=== PATIENT | female | born 1965 | race African-American/Black ===

== ENCOUNTER 2016-07-10 00:23 | Inpatient (IN) | payer OTHER ==
--- NOTE | 2016-07-10 00:32 | HP ---
COWS - Scale Resting Pulse: 0= [place] 80 or Below Sweatin= Chills/Flushing Restless Observation: 1= Difficult to Sit Still Pupil Size: 2= Moderately Dilated Bone or Joint Aches: 4=Acute Joint/Muscle Pain Runny Nose/ Eye Tearin= Runny Nose/Eyes GI Upset > 30mins: 1= Stomach Cramp Tremor Observation: 2= Slight Tremor Visible Yawning Observation: 0= None Anxiety or Irritability: 2=Irritable/Anxious Goose Flesh Skin: 0=Smooth Skin COWS Score: 15 Admission ROS S - HPI Chief Complaint: WITHDRAWAL SX'S Allergies/Adverse Reactions: Allergies Allergy/AdvReac Type Severity Reaction Status Date / Time No Known Allergies Allergy Verified 11/12/14 20:21 History of Present Illness: 51 Y.O. FEMALE WITH OPIOID DEPENDENCE FOR THE PAST 1 YEAR ADMITTED FOR DETOX TXMENT. THIS IS CLIENTS FIRST TIME IN DETOX. SHE IS CURRENTLY IN [facility] OUT[facility]IENT [facility]. DENIES ANY SIGNIFICANT CLEAN TIME. Exam Limitations: No Limitations - Ebola screening Have you traveled outside of the country in the last 21 days: No Have you had contact with anyone from an Ebola affected area: No Have you been sick,other than usual withdrawal symptoms: No Do you have a fever: No - Review of Systems Constitutional: Chills, Loss of Appetite, Malaise, Night Sweats, Changes in sleep EENT: reports: Nose Congestion, Other (RINORRHEA) Respiratory: reports: No Symptoms reported Cardiac: reports: No Symptoms Reported GI: reports: Poor Appetite, Abdominal cramping : reports: No Symptoms Reported Musculoskeletal: reports: Back Pain Integumentary: reports: No Symptoms Reported Neuro: reports: No Symptoms reported Endocrine: reports: No Symptoms Reported Hematology: reports: No Symptoms Reported Psychiatric: reports: No Sypmtoms Reported Other Systems: Reviewed and Negative Patient History - Patient Medical History Hx Anemia: Yes Hx Asthma: No Hx Chronic Obstructive Pulmonary Disease (COPD): No Hx Cancer: No Hx Cardiac Disorders: No Hx Congestive Heart Failure: No Hx Hypertension: No Hx Hypercholesterolemia: No Hx Pacemaker: No HX Cerebrovascular Accident: No Hx Seizures: No Hx Dementia: No Hx Diabetes: No Hx Gastrointestinal Disorders: No Hx Liver Disease: No Hx Genitourinary Disorders: No Hx Sexually Transmitted Disorders: No Hx Renal Disease (ESRD): No Hx Thyroid Disease: No Hx Human Immunodeficiency Virus (HIV): No Hx Hepatitis C: No Hx Depression: No Hx Suicide Attempt: No Hx Bipolar Disorder: No Hx Schizophrenia: No Other Medical History: DENIES - Patient Surgical History Past Surgical History: Yes Hx Neurologic Surgery: No Hx Cataract Extraction: No Hx Cardiac Surgery: No Hx Lung Surgery: No Hx Breast Surgery: No Hx Breast Biopsy: No Hx Abdominal Surgery: No Hx Appendectomy: No Hx Cholecystectomy: No Hx Genitourinary Surgery: No Hx Section: No Hx Orthopedic Surgery: Yes (L ANKLE FX REPAIR WITH ORIF) Hx Hysterectomy: No Anesthesia Reaction: No - PPD History Previous Implant?: Yes Documented Results: Negative w/o proof Implanted On Prior R Admission?: No PPD to be Administered?: Yes - Reproductive History Patient is a Female of Child Bearing Age (11 -55 yrs old): Yes Last Menstrual Period: 12/14/15 Patient : No ([facility]) - Smoking Cessation Smoking history: Current every day smoker Have you smoked in the past 12 months: Yes Aproximately how many cigarettes per day: 7 Cigars Per Day: 0 Hx Chewing Tobacco Use: No Initiated information on smoking cessation: Yes 'Breaking Loose' booklet given: 07/10/16 - Substance & Tx. History Hx Alcohol Use: No Hx Substance Use: Yes Substance Use Type: Heroin Hx Substance Use Treatment: No - Substances Abused HEROIN Route: Inhalation Frequency: Daily Amount used: 1 BAG Age of first use: 51 Date of Last Use: 07/08/16 Family Disease History - Family Disease History Family History: Denies Admission Physical Exam S - Physical General Appearance: Yes: No Apparent Distress, Appropriately Dressed HEENTM: Yes: EOMI, Hearing grossly Normal, Normocephalic, Normal Voice, DEBORAH, Pharynx Normal Respiratory: Yes: Chest Non-Tender, Lungs Clear, Normal Breath Sounds, No Respiratory Distress, No Accessory Muscle Use Neck: Yes: No masses,lesions,Nodules, Supple, Trachea in good position Breast: Yes: Breast Exam Deferred Cardiology: Yes: Regular Rhythm, Regular Rate, S1, S2 Abdominal: Yes: Normal Bowel Sounds, Non Tender, Soft Genitourinary: Yes: Within Normal Limits Back: Yes: Normal Inspection Musculoskeletal: Yes: full range of Motion, Gait Steady Extremities: Yes: Normal Range of Motion, Non-Tender, Tremors Neurological: Yes: video conference specialist II-XII NML intact, Fully Oriented, Alert, Motor Strength 5/5 Integumentary: Yes: Normal Color, Warm, Moist Lymphatic: Yes: Within Normal Limits - Diagnostic (1) Opioid dependence with withdrawal Current Visit: Yes Status: Acute (2) Nicotine dependence Current Visit: Yes Status: Chronic Qualifiers: Nicotine product type: cigarettes Substance use status: uncomplicated Qualified Code(s): F17.210 - Nicotine dependence, cigarettes, uncomplicated Cleared for Admission S - Detox or Rehab [facility] Level of Care: Medically Managed Detox Regimen/Protocol: Methadone S Breath Alcohol Content Breath Alcohol Content: 0 Vital Signs - Vital Signs Vital Signs Refused: No Temperature: 97.6 F Temperature Source: Oral Pulse Rate: 75 Respiratory Rate: 18 Blood Pressure: 126/78 BP Location: Left Arm Blood Pressure Position: Sitting - Height Height: 5 ft 7 in - Weight Weight: 65.317 kg Weight Measurement Method: Standing Scale Body Mass Index (BMI): 22.5 Urine Pregancy Test - Test Device Lot Number: [id number] Expiration Date: 01/11/18 - Control Horizontal Line in Upper Control Window?: Yes - Result Urine Test Results: Negative- NO Line Present Urine Drug Screen - Test Device Lot Number: [id number] - Control Is Test Valid: Yes - Results Drug Screen Negative: No Urine Drug Screen Results: VICENTE-Cocaine, OPI-Opiates
[2016-07-10 00:37] VITALS: BMI 22.5
[2016-07-10] MEDS ORDERED: MAGNESIUM HYDROX 2400MG/30ML ORAL SUSPENSION 30 ML CUP PO PRN (00:37)
[2016-07-10] MEDS ORDERED: METHADONE HCL 10 MG TABLET (FOR DETOX USE ONLY) PO ONE ×3 (00:37→23:00)
[2016-07-10] MEDS ORDERED: MAGNESIUM CITRATE 300 ML BOTTLE PO PRN (00:37)
[2016-07-10] MEDS ORDERED: MAG HYDROX/AL HYDROX/SIMETH 30 ML UNIT-DOSE CUP PO PRN (00:37)
[2016-07-10] MEDS ORDERED: IBUPROFEN 400 MG TABLET (FP) PO PRN (00:37)
[2016-07-10] MEDS ORDERED: guaiFENesin/D-METHORPHAN HB 10 ML UNIT-DOSE CUPS PO PRN (00:37)
[2016-07-10] MEDS ORDERED: LOPERAMIDE HCL 2 MG CAPSULE PO PRN (00:37)
[2016-07-10] MEDS ORDERED: MENTHOL/PHENOL 1 EACH UD MM PRN (00:37)
[2016-07-10] MEDS ORDERED: P-EPHED 60MG/TRIPROLIDI 2.5MG TABLET PO PRN (00:37)
[2016-07-10] MEDS: diazePAM 5 MG TABLET PO PRN ×3 (01:24→15:47)
[2016-07-10 10:16] LABS: MCH 29.2 pg (25.7-33.7); MCHC 33.1 g/dl (32.0-36.0); MEAN CELL VOLUME 88.2 fl (80-96); MEAN PLT VOLUME 8.5 fl (7.5-11.1); PLATELET COUNT 230 K/MM3 (134-434); RDW 17.3 % (11.6-15.6); WHITE BLOOD COUNT 7.1 K/mm3 (4.0-10.0)
[2016-07-10] MEDS: PRENATAL VITAMINS W/ FOLIC ACID TABLET (FP) PO SCH (10:39)
[2016-07-10] MEDS: NICOTINE 14 MG/24 HOURS TOPICAL PATCH TD SCH (10:40)
[2016-07-10] MEDS: NICOTINE POLACRILEX 2 MG GUM BC PRN (10:42)
--- NOTE | 2016-07-10 10:42 | PN ---
BHS COWS - Scale Resting Pulse: 0= [place] 80 or Below Sweatin=Flushed/Facial Moisture Restless Observation: 1= Difficult to Sit Still Pupil Size: 0= Normal to Room Light Bone or Joint Aches: 2= Severe Diffuse Aches Runny Nose/ Eye Tearin= Runny Nose/Eyes GI Upset > 30mins: 0= None Tremor Observation of Outstretched Hands: 2= Slight Tremor Visible Yawning Observation: 2= >3x During Session Anxiety or Irritability: 2=Irritable/Anxious Goose Flesh Skin: 3=Piloerection COWS Score: 16 BHS Progress Note (SOAP) Subjective: chills shakes sweats agitation irritable interrupted sleep body aches Objective: 07/10/16 10:41 Vital Signs Temperature 99.5 F 07/10/16 10:00 Pulse Rate 77 07/10/16 10:00 Respiratory Rate 18 07/10/16 10:00 Blood Pressure 121/96 07/10/16 10:00 O2 Sat by Pulse Oximetry (%) Laboratory Tests 07/10/16 07/10/16 07:40 07:40 WBC 7.1 RBC 4.58 Hgb 13.4 D Hct 40.4 D MCV 88.2 MCHC 33.1 RDW 17.3 H D Plt Count 230 MPV 8.5 D Sodium 142 Potassium 3.7 Chloride 105 labs pending awake/alert ambulating no acute distress Assessment: 07/10/16 10:42 withdrawal sx Plan: continue detox increase fluids tylenol/motrin prn labs pending
[2016-07-10 10:43] LABS: ALBUMIN 3.3 g/dl (3.4-5.0); ALK PHOS 114 U/L (45-117); ANION GAP 8 (8-16); BILIRUBIN,TOTAL 0.5 mg/dL (0.2-1.0); CALCIUM 9.1 mg/dL (8.5-10.1); CO2 29 mmol/L (21-32); CREATININE 0.7 mg/dL (0.55-1.02); GLUCOSE,RANDOM 73 mg/dL (74-106); SGOT/AST 17 U/L (15-37); SGPT/ALT 24 U/L (12-78); TOT PROT 6.7 g/dl (6.4-8.2)
[2016-07-10 16:11] LABS: URINE APPEARANCE CLOUDY; URINE BILIRUBIN NEGATIVE (NEGATIVE); URINE BLOOD NEGATIVE (NEGATIVE); URINE COLOR DKYELLOW; URINE GLUCOSE (UA) NEGATIVE (NEGATIVE); URINE KETONE NEGATIVE (NEGATIVE); URINE NITRITE NEGATIVE (NEGATIVE); URINE PROTEIN NEGATIVE (NEGATIVE); URINE UROBILINOGEN NEGATIVE E.U./dl (0.2-1.0)
[2016-07-10 16:18] LABS: URINE LEUK ESTERASE 3+ (NEGATIVE)
[2016-07-10 16:57] LABS: URINE MUCUS RARE; URINE RBC 14 /hpf (0-3); URINE WBC 14 /hpf (3-5)
[2016-07-10] MEDS: THIAMINE HCL 100 MG TABLET (FP) PO SCH (23:12)
[2016-07-10] MEDS: METHADONE HCL 10 MG TABLET (FOR DETOX USE ONLY) PO ONE (23:12)
[2016-07-10] MEDS: diphenhydrAMINE HCL 50 MG CAPSULE PO PRN (23:13)
[2016-07-11] MEDS ORDERED: METHADONE HCL 10 MG TABLET (FOR DETOX USE ONLY) PO ONE (10:00)
[2016-07-11] MEDS: PRENATAL VITAMINS W/ FOLIC ACID TABLET (FP) PO SCH (10:25)
[2016-07-11] MEDS: NICOTINE 14 MG/24 HOURS TOPICAL PATCH TD SCH (10:26)
[2016-07-11] MEDS: diazePAM 5 MG TABLET PO PRN ×3 (10:28→22:50)
--- NOTE | 2016-07-11 11:20 | PN ---
S COWS - Scale Resting Pulse: 0= [place] 80 or Below Sweatin= Chills/Flushing Restless Observation: 1= Difficult to Sit Still Pupil Size: 1= Pupils >than Normal Bone or Joint Aches: 2= Severe Diffuse Aches Runny Nose/ Eye Tearin= Nasal Congestion GI Upset > 30mins: 2= Nausea/Diarrhea Tremor Observation of Outstretched Hands: 1= Tremor [place], Not Seen Yawning Observation: 0= None Anxiety or Irritability: 2=Irritable/Anxious Goose Flesh Skin: 0=Smooth Skin COWS Score: 11 S Progress Note (SOAP) Subjective: interrupted sleep,sweats, nausea, bone pains Objective: 07/11/16 11:17 Vital Signs Temperature 97.5 F L 07/11/16 09:57 Pulse Rate 73 07/11/16 09:57 Respiratory Rate 20 07/11/16 09:57 Blood Pressure 114/88 07/11/16 09:57 O2 Sat by Pulse Oximetry (%) Laboratory Tests 07/10/16 07/10/16 07/10/16 07:40 07:40 07:40 WBC 7.1 RBC 4.58 Hgb 13.4 D Hct 40.4 D MCV 88.2 MCHC 33.1 RDW 17.3 H D Plt Count 230 MPV 8.5 D Sodium 142 Potassium 3.7 Chloride 105 Carbon Dioxide 29 Anion Gap 8 BUN 16 D Creatinine 0.7 Creat Clearance w eGFR > 60 Random Glucose 73 L Calcium 9.1 Total Bilirubin 0.5 D AST 17 D ALT 24 Alkaline Phosphatase 114 D Total Protein 6.7 Albumin 3.3 L Urine Color Urine Appearance Urine pH Ur Specific [place] Urine Protein Urine Glucose (UA) Urine Ketones Urine Blood Urine Nitrite Urine Bilirubin Urine Urobilinogen Ur Leukocyte Esterase Urine RBC Urine WBC Ur Epithelial Cells Urine Mucus RPR Titer Nonreactive 07/10/16 11:30 WBC RBC Hgb Hct MCV MCHC RDW Plt Count MPV Sodium Potassium Chloride Carbon Dioxide Anion Gap BUN Creatinine Creat Clearance w eGFR Random Glucose Calcium Total Bilirubin AST ALT Alkaline Phosphatase Total Protein Albumin Urine Color Dkyellow Urine Appearance Cloudy Urine pH 5.0 Ur Specific [place] 1.028 Urine Protein Negative Urine Glucose (UA) Negative Urine Ketones Negative Urine Blood Negative Urine Nitrite Negative Urine Bilirubin Negative Urine Urobilinogen Negative Ur Leukocyte Esterase 3+ H Urine RBC 14 Urine WBC 14 Ur Epithelial Cells Moderate Urine Mucus Rare RPR Titer pt aox3 in nad ambulating Assessment: 07/11/16 11:18 withdrawl sx's Plan: cont. detox increase fluids ensure bid motrin prn repeat u/a
[2016-07-11] MEDS: NICOTINE POLACRILEX 2 MG GUM BC PRN (17:14)
[2016-07-11] MEDS: THIAMINE HCL 100 MG TABLET (FP) PO SCH (22:50)
[2016-07-11] MEDS: diphenhydrAMINE HCL 50 MG CAPSULE PO PRN (22:51)
[2016-07-12] MEDS ORDERED: METHADONE HCL 5 MG TABLET (FOR DETOX USE ONLY) PO ONE (10:00)
[2016-07-12] MEDS: PRENATAL VITAMINS W/ FOLIC ACID TABLET (FP) PO SCH (10:15)
[2016-07-12] MEDS: diazePAM 5 MG TABLET PO PRN ×3 (10:16→22:33)
[2016-07-12] MEDS: NICOTINE 14 MG/24 HOURS TOPICAL PATCH TD SCH (10:19)
[2016-07-12] MEDS: NICOTINE POLACRILEX 2 MG GUM BC PRN ×3 (10:19→22:35)
--- NOTE | 2016-07-12 11:16 | PN ---
BHS Progress Note (SOAP) Subjective: interrupted sleep sweats shakes Objective: 07/12/16 11:16 Vital Signs Temperature 98.4 F 07/12/16 10:50 Pulse Rate 100 H 07/12/16 10:50 Respiratory Rate 20 07/12/16 10:50 Blood Pressure 114/66 07/12/16 10:50 O2 Sat by Pulse Oximetry (%) Laboratory Tests 07/10/16 07/10/16 07/10/16 07:40 07:40 07:40 WBC 7.1 RBC 4.58 Hgb 13.4 D Hct 40.4 D MCV 88.2 MCHC 33.1 RDW 17.3 H D Plt Count 230 MPV 8.5 D Sodium 142 Potassium 3.7 Chloride 105 Carbon Dioxide 29 Anion Gap 8 BUN 16 D Creatinine 0.7 Creat Clearance w eGFR > 60 Random Glucose 73 L Calcium 9.1 Total Bilirubin 0.5 D AST 17 D ALT 24 Alkaline Phosphatase 114 D Total Protein 6.7 Albumin 3.3 L Urine Color Urine Appearance Urine pH Ur Specific [place] Urine Protein Urine Glucose (UA) Urine Ketones Urine Blood Urine Nitrite Urine Bilirubin Urine Urobilinogen Ur Leukocyte Esterase Urine RBC Urine WBC Ur Epithelial Cells Urine Mucus RPR Titer Nonreactive 07/10/16 11:30 WBC RBC Hgb Hct MCV MCHC RDW Plt Count MPV Sodium Potassium Chloride Carbon Dioxide Anion Gap BUN Creatinine Creat Clearance w eGFR Random Glucose Calcium Total Bilirubin AST ALT Alkaline Phosphatase Total Protein Albumin Urine Color Dkyellow Urine Appearance Cloudy Urine pH 5.0 Ur Specific [place] 1.028 Urine Protein Negative Urine Glucose (UA) Negative Urine Ketones Negative Urine Blood Negative Urine Nitrite Negative Urine Bilirubin Negative Urine Urobilinogen Negative Ur Leukocyte Esterase 3+ H Urine RBC 14 Urine WBC 14 Ur Epithelial Cells Moderate Urine Mucus Rare RPR Titer repeat u/a pending awake/alert ambulating no acute distress Assessment: 07/12/16 11:17 withdrawal sx Plan: continue detox increase fluids
--- NOTE | 2016-07-12 11:54 | CONSULT ---
[facility] Psychiatric Consult - Data Date of interview: 07/12/16 Admission source: [facility] Identifying data: This is 51 years old female with no psychiatric hospitalization history intoxicated with Heroin Substance Abuse History: - Smoking Cessation. Smoking history: Current every day smoker. Have you smoked in the past 12 months: Yes. Aproximately how many cigarettes per day: 7. Cigars Per Day: 0. Hx Chewing Tobacco Use: No. Initiated information on smoking cessation: Yes. 'Breaking Loose' booklet given : 07/10/16. - Substance & Tx. History. Hx Alcohol Use: No. Hx Substance Use: Yes. Substance Use Type: Heroin. Hx Substance Use Treatment: No. - Substances Abused. HEROIN. Route: Inhalation. Frequency: Daily. Amount used: 1 BAG. Age of first use: 51. Date of Last Use: 07/08/16 Medical History: Denies significant medical issues, as per computer PID history Psychiatric History: Denies, reports insomnia Physical/Sexual Abuse/Trauma History: Denies Additional Comment: Seroquel 100mg po qhs Mental Status Exam - Mental Status Exam Alert and Oriented to: Person Cognitive Function: Fair Patient Appearance: Unkempt Mood: Anxious Affect: Mood Congruent Patient Behavior: Cooperative Speech Pattern: Appropriate Voice Loudness: Mildly Soft/Quiet Thought Process: Goal Oriented Thought Disorder: Being Controlled Hallucinations: Denies Suicidal Ideation: Denies Homicidal Ideation: Denies Insight/Judgement: Fair Sleep: Difficulty falling asleep Appetite: Fair Muscle strength/Tone: Normal Gait/Station: Normal Additional Comments: Seroquel 100mg po qhs Psychiatric Findings - Problem List ([place] 1, 2,3) (1) Opioid dependence with withdrawal Current Visit: Yes Status: Acute (2) Nicotine dependence Current Visit: Yes Status: Chronic Qualifiers: Nicotine product type: cigarettes Substance use status: uncomplicated Qualified Code(s): F17.210 - Nicotine dependence, cigarettes, uncomplicated (3) Opioid dependence Current Visit: No Status: Acute (4) Opioid-induced sleep disorder, insomnia type, with onset during discontinuation/withdrawal Current Visit: Yes Status: Acute (5) Drug-induced mood disorder Current Visit: Yes Status: Acute - Initial Treatment Plan Initial Treatment Plan: Seroquel 100mg po qhs
[2016-07-12] MEDS: diphenhydrAMINE HCL 50 MG CAPSULE PO PRN (22:32)
[2016-07-12] MEDS: THIAMINE HCL 100 MG TABLET (FP) PO SCH (22:32)
[2016-07-12] MEDS: QUEtiapine FUMARATE 100 MG TABLET (FP) PO SCH (22:33)
[2016-07-13] MEDS ORDERED: METHADONE HCL 5 MG TABLET (FOR DETOX USE ONLY) PO ONE (10:00)
[2016-07-13] MEDS: PRENATAL VITAMINS W/ FOLIC ACID TABLET (FP) PO SCH (10:25)
[2016-07-13] MEDS: NICOTINE 14 MG/24 HOURS TOPICAL PATCH TD SCH (10:25)
[2016-07-13] MEDS: NICOTINE POLACRILEX 2 MG GUM BC PRN (10:29)
--- NOTE | 2016-07-13 11:29 | PN ---
BHS Progress Note (SOAP) Subjective: interrupt sleep, sweats , shakes Objective: 07/13/16 11:27 Vital Signs Temperature 97.7 F 07/13/16 10:12 Pulse Rate 101 H 07/13/16 10:12 Respiratory Rate 20 07/13/16 10:12 Blood Pressure 110/75 07/13/16 10:12 O2 Sat by Pulse Oximetry (%) Laboratory Tests 07/10/16 07/10/16 07/10/16 07:40 07:40 07:40 WBC 7.1 RBC 4.58 Hgb 13.4 D Hct 40.4 D MCV 88.2 MCHC 33.1 RDW 17.3 H D Plt Count 230 MPV 8.5 D Sodium 142 Potassium 3.7 Chloride 105 Carbon Dioxide 29 Anion Gap 8 BUN 16 D Creatinine 0.7 Creat Clearance w eGFR > 60 Random Glucose 73 L Calcium 9.1 Total Bilirubin 0.5 D AST 17 D ALT 24 Alkaline Phosphatase 114 D Total Protein 6.7 Albumin 3.3 L Urine Color Urine Appearance Urine pH Ur Specific [place] Urine Protein Urine Glucose (UA) Urine Ketones Urine Blood Urine Nitrite Urine Bilirubin Urine Urobilinogen Ur Leukocyte Esterase Urine RBC Urine WBC Ur Epithelial Cells Urine Mucus RPR Titer Nonreactive 07/10/16 11:30 WBC RBC Hgb Hct MCV MCHC RDW Plt Count MPV Sodium Potassium Chloride Carbon Dioxide Anion Gap BUN Creatinine Creat Clearance w eGFR Random Glucose Calcium Total Bilirubin AST ALT Alkaline Phosphatase Total Protein Albumin Urine Color Dkyellow Urine Appearance Cloudy Urine pH 5.0 Ur Specific [place] 1.028 Urine Protein Negative Urine Glucose (UA) Negative Urine Ketones Negative Urine Blood Negative Urine Nitrite Negative Urine Bilirubin Negative Urine Urobilinogen Negative Ur Leukocyte Esterase 3+ H Urine RBC 14 Urine WBC 14 Ur Epithelial Cells Moderate Urine Mucus Rare RPR Titer pt aox3 in nad ambulating rt ear helix -papule tender hyper pigmented Assessment: 07/13/16 11:28 withdrawl sx's rt ear papule ?infected papule Plan: cont, detox increase fluids augmentin 875mg bid
[2016-07-13] MEDS: AMOX TR/POT CLAV 875MG/125MG TABLETS (FP) PO SCH ×2 (11:55→16:40)
[2016-07-13] MEDS ORDERED: AMOX TR/POT CLAV 875MG/125MG TABLETS (FP) PO SCH (17:30)
--- NOTE | 2016-07-13 18:28 | PN ---
[facility] Progress Note Note: Psychiatry Attending's note: Complaint:insomnia. Met with patient at bedside. Confirmed sleep latency and frequent awakenings. Hospital course is otherwise uneventful.Detox well tolerated. Progress notes are read and appreciated,including Dr Terrell's evaluation. Mr Simmons was already seen by Dr Terrell on 07/12/16.Stable mental status. Intervention : zolpidem 5 mg po hs prn.Ordered. Patient made aware of risk of parasomnias. Educated about the virtues of principles of sleep hygiene. Patient agrees with this plan of care.Will follow response.
[2016-07-13] MEDS: ZOLPIDEM TARTRATE 5 MG TABLET PO PRN (22:47)
[2016-07-13] MEDS: THIAMINE HCL 100 MG TABLET (FP) PO SCH (22:47)
[2016-07-13] MEDS: QUEtiapine FUMARATE 100 MG TABLET (FP) PO SCH (22:47)
[2016-07-14] MEDS: ACETAMINOPHEN 325 MG TABLET (FP) PO PRN ×2 (05:45→11:38)
[2016-07-14] MEDS: AMOX TR/POT CLAV 875MG/125MG TABLETS (FP) PO SCH ×2 (07:35→17:29)
[2016-07-14] MEDS: NICOTINE 14 MG/24 HOURS TOPICAL PATCH TD SCH (11:38)
[2016-07-14] MEDS: METHADONE HCL 10 MG TABLET (FOR DETOX USE ONLY) PO ONE (11:38)
[2016-07-14] MEDS: PRENATAL VITAMINS W/ FOLIC ACID TABLET (FP) PO SCH (11:38)
[2016-07-14] MEDS: CYCLOBENZAPRINE HCL 10 MG TABLET (FP) PO PRN ×2 (13:45→22:37)
--- NOTE | 2016-07-14 13:58 | PN ---
S Progress Note (SOAP) Subjective: alert,irritable,anxious,interrupted sleep Objective: 07/14/16 13:57 Vital Signs Temperature 97.5 F L 07/14/16 10:00 Pulse Rate 97 H 07/14/16 10:00 Respiratory Rate 18 07/14/16 10:00 Blood Pressure 117/69 07/14/16 10:00 O2 Sat by Pulse Oximetry (%) Assessment: 07/14/16 13:58 withdrawal symptom Plan: continue detox,discharge in am
[2016-07-14] MEDS: hydrOXYzine PAMOATE 50 MG CAPSULE (FP) PO PRN ×2 (15:34→22:38)
[2016-07-14 21:59] VITALS: TEMP 97.9
[2016-07-14] MEDS: QUEtiapine FUMARATE 100 MG TABLET (FP) PO SCH (22:37)
[2016-07-14] MEDS: ZOLPIDEM TARTRATE 5 MG TABLET PO PRN (22:37)
[2016-07-14] MEDS: THIAMINE HCL 100 MG TABLET (FP) PO SCH (22:38)
[2016-07-15] MEDS ORDERED: METHADONE HCL 5 MG TABLET (FOR DETOX USE ONLY) PO ONE (06:00)
[2016-07-15] MEDS: CYCLOBENZAPRINE HCL 10 MG TABLET (FP) PO PRN (06:10)
[2016-07-15 06:39] VITALS: BP 97/60; PULSE 80
[2016-07-15] MEDS: AMOX TR/POT CLAV 875MG/125MG TABLETS (FP) PO SCH (07:13)
--- NOTE | 2016-07-15 11:26 | DS ---
[facility] Detox Discharge Summary Admission Date: 07/10/16 Discharge Date: 07/15/16 - History Present History: Opioid Dependence Pertinent Past History: PID - Physical Exam Results Vital Signs: Vital Signs Temperature 97.9 F 07/15/16 06:00 Pulse Rate 80 07/15/16 06:00 Respiratory Rate 18 07/15/16 06:00 Blood Pressure 97/60 07/15/16 06:00 O2 Sat by Pulse Oximetry (%) Pertinent Admission Physical Exam Findings: WITHDRAWAL SX. Laboratory Last Values WBC 7.1 K/mm3 (4.0-10.0) 07/10/16 07:40 RBC 4.58 M/mm3 (3.60-5.2) 07/10/16 07:40 Hgb 13.4 GM/dL (10.7-15.3) D 07/10/16 07:40 Hct 40.4 % (32.4-45.2) D 07/10/16 07:40 MCV 88.2 fl (80-96) 07/10/16 07:40 MCHC 33.1 g/dl (32.0-36.0) 07/10/16 07:40 RDW 17.3 % (11.6-15.6) H D 07/10/16 07:40 Plt Count 230 K/MM3 (134-434) 07/10/16 07:40 MPV 8.5 fl (7.5-11.1) D 07/10/16 07:40 Sodium 142 mmol/L (136-145) 07/10/16 07:40 Potassium 3.7 mmol/L (3.5-5.1) 07/10/16 07:40 Chloride 105 mmol/L (98-107) 07/10/16 07:40 Carbon Dioxide 29 mmol/L (21-32) 07/10/16 07:40 Anion Gap 8 (8-16) 07/10/16 07:40 BUN 16 mg/dL (7-18) D 07/10/16 07:40 Creatinine 0.7 mg/dL (0.55-1.02) 07/10/16 07:40 Creat Clearance w eGFR > 60 (>60) 07/10/16 07:40 Random Glucose 73 mg/dL (74-106) L 07/10/16 07:40 Calcium 9.1 mg/dL (8.5-10.1) 07/10/16 07:40 Total Bilirubin 0.5 mg/dL (0.2-1.0) D 07/10/16 07:40 AST 17 U/L (15-37) D 07/10/16 07:40 ALT 24 U/L (12-78) 07/10/16 07:40 Alkaline Phosphatase 114 U/L (45-117) D 07/10/16 07:40 Total Protein 6.7 g/dl (6.4-8.2) 07/10/16 07:40 Albumin 3.3 g/dl (3.4-5.0) L 07/10/16 07:40 Urine Color Dkyellow 07/10/16 11:30 Urine Appearance Cloudy 07/10/16 11:30 Urine pH 5.0 (5.0-8.0) 07/10/16 11:30 Ur Specific [place] 1.028 (1.001-1.035) 07/10/16 11:30 Urine Protein Negative (NEGATIVE) 07/10/16 11:30 Urine Glucose (UA) Negative (NEGATIVE) 07/10/16 11:30 Urine Ketones Negative (NEGATIVE) 07/10/16 11:30 Urine Blood Negative (NEGATIVE) 07/10/16 11:30 Urine Nitrite Negative (NEGATIVE) 07/10/16 11:30 Urine Bilirubin Negative (NEGATIVE) 07/10/16 11:30 Urine Urobilinogen Negative E.U./dl (0.2-1.0) 07/10/16 11:30 Ur Leukocyte Esterase 3+ (NEGATIVE) H 07/10/16 11:30 Urine RBC 14 /hpf (0-3) 07/10/16 11:30 Urine WBC 14 /hpf (3-5) 07/10/16 11:30 Ur Epithelial Cells Moderate /hpf (FEW) 07/10/16 11:30 Urine Mucus Rare 07/10/16 11:30 RPR Titer Nonreactive (NONREACTIVE) 07/10/16 07:40 LABS NOTED - Treatment Hospital Course: Detox Protocol Followed, Detoxed Safely, Responded well, Discharged Condition Good, Rehab Referral Accepted - Medication Discharge Medications: Ambulatory Orders Acetaminophen [Tylenol .Regular Strength -] 650 mg PO Q4H PRN #30 tablet Cefuroxime Axetil [Ceftin] 500 mg PO BID #20 tablet 11/16/14 Doxycycline Monohydrate [Adoxa Jerardo] 100 mg PO BID #20 tablet 11/16/14 Ibuprofen [Motrin -] 600 mg PO Q6H PRN #30 tablet 11/16/14 Buprenorphine/Naloxone [Suboxone 8Mg/2Mg Sl Film -] 1 each SL ONCE #1 packet MDD 8 mg 06/13/16 Buprenorphine/Naloxone [Suboxone 8Mg/2Mg Sl Film -] 1 each SL ONCE #1 packet MDD 8 mg 06/13/16 Quetiapine Fumarate [Seroquel] 100 mg PO HS #30 tablet 07/12/16 - Diagnosis (1) Drug-induced mood disorder Status: Acute (2) Nicotine dependence Status: Chronic Qualifiers: Nicotine product type: cigarettes Substance use status: uncomplicated Qualified Code(s): F17.210 - Nicotine dependence, cigarettes, uncomplicated (3) Opioid dependence with withdrawal Status: Acute (4) Opioid-induced sleep disorder, insomnia type, with onset during discontinuation/withdrawal Status: Acute (5) PID (acute pelvic inflammatory disease) Status: Acute - AMA Did Patient Leave Against Medical Advice: No
== END 2016-07-15 09:59 | disposition home or self-care (01) | DRG 773 ==
LOC: YASAS 00:23 → Y6N 00:28
PROVIDERS: ADMIT Internal Medicine Addiction Medicine; ATTEND Internal Medicine Addiction Medicine
PROC: HZ2ZZZZ Detoxification Services for Substance Abuse Treatment (ICD-10-PCS; principal; 2016-07-10)
DX: F11.23 Opioid dependence with withdrawal (principal); F11.282 Opioid dependence with opioid-induced sleep disorder; F17.210 Nicotine dependence, cigarettes, uncomplicated; F19.24 Other psychoactive substance dependence with psychoactive substance-induced mood disorder; N73.0 Acute parametritis and pelvic cellulitis; H61.891 Other specified disorders of right external ear; Z86.2 Personal history of diseases of the blood and blood-forming organs and certain disorders involving the immune mechanism
CPT/HCPCS: 36415; 80053; 81003; 81015; 85027; 86593; 93005; 93010

== ENCOUNTER 2017-04-22 10:56 | Inpatient (IN) | payer OTHER ==
[2017-04-22 13:20] VITALS: BMI 22.5
--- NOTE | 2017-04-22 15:08 | HP ---
COWS - Scale Resting Pulse: 0= [place] 80 or Below Sweatin=Flushed/Facial Moisture Restless Observation: 1= Difficult to Sit Still Pupil Size: 0= Normal to Room Light Bone or Joint Aches: 2= Severe Diffuse Aches Runny Nose/ Eye Tearin= Runny Nose/Eyes GI Upset > 30mins: 2= Nausea/Diarrhea Tremor Observation: 2= Slight Tremor Visible Yawning Observation: 2= >3x During Session Anxiety or Irritability: 2=Irritable/Anxious Goose Flesh Skin: 3=Piloerection COWS Score: 18 Admission ROS S - HPI Chief Complaint: I am here for detox and get my life back. Allergies/Adverse Reactions: Allergies Allergy/AdvReac Type Severity Reaction Status Date / Time No Known Allergies Allergy Verified 04/22/17 14:50 History of Present Illness: pt is a 52yr old female with a history of heroin dependence seeking detox for treatment. Exam Limitations: No Limitations - Ebola screening Have you traveled outside of the country in the last 21 days: No Have you had contact with anyone from an Ebola affected area: No Have you been sick,other than usual withdrawal symptoms: No Do you have a fever: No - Review of Systems Constitutional: Chills, Night Sweats, Changes in sleep EENT: reports: Tearing, Nose Congestion Respiratory: reports: No Symptoms reported Cardiac: reports: No Symptoms Reported GI: reports: Nausea, Poor Appetite, Poor Fluid Intake : reports: No Symptoms Reported Musculoskeletal: reports: Back Pain, Joint Pain, Muscle Pain Integumentary: reports: Flushing, Sweating Neuro: reports: Tingling, Tremors Endocrine: reports: Excessive Sweating, Flushing, Intolerance to Cold, Intolerance to Heat Hematology: reports: No Symptoms Reported Psychiatric: reports: Judgement Intact, Mood/Affect Appropiate, Orientated x3, Agitated, Anxious Other Systems: Reviewed and Negative Patient History - Patient Medical History Hx Anemia: No Hx Asthma: No Hx Chronic Obstructive Pulmonary Disease (COPD): No Hx Cancer: No Hx Cardiac Disorders: No Hx Congestive Heart Failure: No Hx Hypertension: No Hx Hypercholesterolemia: No Hx Pacemaker: No HX Cerebrovascular Accident: No Hx Seizures: No Hx Dementia: No Hx Diabetes: No Hx Gastrointestinal Disorders: No Hx Liver Disease: No Hx Genitourinary Disorders: No Hx Sexually Transmitted Disorders: No Hx Renal Disease (ESRD): No Hx Thyroid Disease: No Hx Human Immunodeficiency Virus (HIV): No (negative) Hx Hepatitis C: No (negative) Hx Depression: No Hx Suicide Attempt: No (denies) Hx Bipolar Disorder: No Hx Schizophrenia: No Other Medical History: insomnia - Patient Surgical History Past Surgical History: Yes Hx Neurologic Surgery: No Hx Cataract Extraction: No Hx Cardiac Surgery: No Hx Lung Surgery: No Hx Breast Surgery: No Hx Breast Biopsy: No Hx Abdominal Surgery: No Hx Appendectomy: No Hx Cholecystectomy: No Hx Genitourinary Surgery: No Hx Section: No Hx Orthopedic Surgery: Yes (L ANKLE FX REPAIR WITH ORIF) Hx Hysterectomy: No Anesthesia Reaction: No - PPD History Previous Implant?: Yes Documented Results: Negative w/proof Date: 07/12/16 PPD to be Administered?: No - Reproductive History Patient is a Female of Child Bearing Age (11 -55 yrs old): No Last Menstrual Period: 12/14/15 - Smoking Cessation Smoking history: Current every day smoker Have you smoked in the past 12 months: Yes Aproximately how many cigarettes per day: 7 Cigars Per Day: 0 Hx Chewing Tobacco Use: No Initiated information on smoking cessation: Yes 'Breaking Loose' booklet given: 04/22/17 - Substance & Tx. History Hx Alcohol Use: No Hx Substance Use: Yes Substance Use Type: Heroin Hx Substance Use Treatment: Yes (last detox [facility] 07/2016) - Substances Abused Heroin Route: Inhalation Frequency: Daily Amount used: 3 bags Age of first use: 51 Date of Last Use: 04/21/17 Family Disease History - Family Disease History Family Disease History: CA: Brother (bone cancer ) Admission Physical Exam S - Vital Signs Vital Signs: Vital Signs - 24 hr 04/22/17 13:18 Temperature 96.4 F L Pulse Rate 80 Respiratory 20 Rate Blood Pressure 107/79 - Physical General Appearance: Yes: Appropriately Dressed, Moderate Distress, Tremorous, Irritable, Sweating, Anxious HEENTM: Yes: Normal Voice, Nasal Congestion, Rhinorrhea Respiratory: Yes: Lungs Clear, Normal Breath Sounds Neck: Yes: No masses,lesions,Nodules Breast: Yes: Within Normal Limits Cardiology: Yes: Regular Rhythm, Regular Rate, S1, S2 Abdominal: Yes: Normal Bowel Sounds, Non Tender Genitourinary: Yes: Within Normal Limits Back: Yes: Normal Inspection Musculoskeletal: Yes: full range of Motion, Gait Steady, Back pain, Joint Stiffness Extremities: Yes: Normal Capillary Refill, Normal Inspection, Non-Tender, Tremors Neurological: Yes: Fully Oriented, Normal Response Integumentary: Yes: Normal Color, Diaphoresis Lymphatic: Yes: Within Normal Limits - Diagnostic (1) Nicotine dependence Current Visit: Yes Status: Chronic Qualifiers: Nicotine product type: cigarettes Substance use status: uncomplicated Qualified Code(s): F17.210 - Nicotine dependence, cigarettes, uncomplicated; F17.210 - Nicotine dependence, cigarettes, uncomplicated (2) Opioid dependence with withdrawal Current Visit: Yes Status: Chronic (3) Insomnia Current Visit: Yes Status: Chronic Cleared for Admission [facility] - Detox or Rehab [facility] Level of Care: Medically Managed Detox Regimen/Protocol: Methadone [facility] Breath Alcohol Content Breath Alcohol Content: 0 Urine Pregancy Test - Result Urine Test Results: Negative- NO Line Present Urine Drug Screen - Results Drug Screen Negative: No Urine Drug Screen Results: OPI-Opiates
[2017-04-22] MEDS ORDERED: hydrOXYzine PAMOATE 50 MG CAPSULE (FP) PO PRN (15:14)
[2017-04-22] MEDS ORDERED: ACETAMINOPHEN 325 MG TABLET (FP) PO PRN (15:14)
[2017-04-22] MEDS ORDERED: NICOTINE POLACRILEX 4 MG GUM BUC PRN (15:14)
[2017-04-22] MEDS ORDERED: P-EPHED 60MG/TRIPROLIDI 2.5MG TABLET PO PRN (15:14)
[2017-04-22] MEDS ORDERED: MAGNESIUM CITRATE 300 ML BOTTLE PO PRN (15:14)
[2017-04-22] MEDS ORDERED: LOPERAMIDE HCL 2 MG CAPSULE PO PRN (15:14)
[2017-04-22] MEDS ORDERED: MAG HYDROX/AL HYDROX/SIMETH 30 ML UNIT-DOSE CUP PO PRN (15:14)
[2017-04-22] MEDS ORDERED: guaiFENesin/D-METHORPHAN HB 10 ML UNIT-DOSE CUPS PO PRN (15:14)
[2017-04-22] MEDS ORDERED: METHADONE HCL 10 MG TABLET (FOR DETOX USE ONLY) PO ONE ×2 (15:28→23:00)
[2017-04-22] MEDS: diazePAM 5 MG TABLET PO PRN ×2 (16:12→22:12)
--- NOTE | 2017-04-22 16:46 | PN ---
[facility] Progress Note Note: received nurse call that the patient requests nicotine patch now continue detox
[2017-04-22] MEDS: NICOTINE 14 MG/24 HOURS TOPICAL PATCH TD SCH (17:11)
[2017-04-22 21:11] LABS: URINE APPEARANCE CLOUDY; URINE BILIRUBIN NEGATIVE (NEGATIVE); URINE BLOOD NEGATIVE (NEGATIVE); URINE COLOR DKYELLOW; URINE GLUCOSE (UA) NEGATIVE (NEGATIVE); URINE KETONE NEGATIVE (NEGATIVE); URINE NITRITE NEGATIVE (NEGATIVE); URINE PROTEIN NEGATIVE (NEGATIVE); URINE UROBILINOGEN NEGATIVE mg/dL (0.2-1.0)
[2017-04-22] MEDS: THIAMINE HCL 100 MG TABLET (FP) PO SCH (22:11)
[2017-04-22 22:24] LABS: URINE LEUK ESTERASE Negative (NEGATIVE)
[2017-04-23] MEDS: diazePAM 5 MG TABLET PO PRN ×2 (08:47→22:17)
[2017-04-23] MEDS ORDERED: METHADONE HCL 10 MG TABLET (FOR DETOX USE ONLY) PO ONE (10:00)
[2017-04-23] MEDS ORDERED: NICOTINE 14 MG/24 HOURS TOPICAL PATCH TD SCH (10:00)
[2017-04-23 10:11] LABS: MCH 29.1 pg (25.7-33.7); MCHC 32.9 g/dl (32.0-36.0); MEAN CELL VOLUME 88.3 fl (80-96); MEAN PLT VOLUME 9.2 fl (7.5-11.1); PLATELET COUNT 203 K/MM3 (134-434); RDW 14.6 % (11.6-15.6); WHITE BLOOD COUNT 6.3 K/mm3 (4.0-10.0)
[2017-04-23 10:23] LABS: ALBUMIN 3.8 g/dl (3.4-5.0); ALK PHOS 122 U/L (45-117); ANION GAP 7 (8-16); BILIRUBIN,TOTAL 0.5 mg/dL (0.2-1.0); CALCIUM 9.9 mg/dL (8.5-10.1); CO2 29 mmol/L (21-32); CREATININE 0.7 mg/dL (0.55-1.02); GLUCOSE,RANDOM 86 mg/dL (74-106); SGOT/AST 11 U/L (15-37); SGPT/ALT 21 U/L (12-78); TOT PROT 7.5 g/dl (6.4-8.2)
[2017-04-23] MEDS: NICOTINE 14 MG/24 HOURS TOPICAL PATCH TD SCH (10:52)
[2017-04-23] MEDS: PRENATAL VITAMINS W/ FOLIC ACID TABLET (FP) PO SCH (10:52)
--- NOTE | 2017-04-23 11:28 | PN ---
[facility] COWS - Scale Resting Pulse: 0= [place] 80 or Below Sweatin=Flushed/Facial Moisture Restless Observation: 1= Difficult to Sit Still Pupil Size: 0= Normal to Room Light Bone or Joint Aches: 2= Severe Diffuse Aches Runny Nose/ Eye Tearin= Runny Nose/Eyes GI Upset > 30mins: 1= Stomach Cramp Tremor Observation of Outstretched Hands: 2= Slight Tremor Visible Yawning Observation: 2= >3x During Session Anxiety or Irritability: 2=Irritable/Anxious Goose Flesh Skin: 3=Piloerection COWS Score: 17 [facility] Progress Note (SOAP) Subjective: irritable agitation anxiety sweats body aches interrupted sleep Objective: 04/23/17 11:24 Vital Signs Temperature 97.9 F 04/23/17 09:30 Pulse Rate 75 04/23/17 09:30 Respiratory Rate 18 04/23/17 09:30 Blood Pressure 112/75 04/23/17 09:30 O2 Sat by Pulse Oximetry (%) Laboratory Tests 04/22/17 04/23/17 04/23/17 15:58 06:00 06:00 WBC 6.3 RBC 4.93 Hgb 14.3 Hct 43.5 MCV 88.3 MCH 29.1 MCHC 32.9 RDW 14.6 D Plt Count 203 MPV 9.2 Sodium 141 Potassium 4.2 Chloride 105 Carbon Dioxide 29 Anion Gap 7 L BUN 15 Creatinine 0.7 Creat Clearance w eGFR > 60 Random Glucose 86 Calcium 9.9 Total Bilirubin 0.5 AST 11 L D ALT 21 Alkaline Phosphatase 122 H Total Protein 7.5 Albumin 3.8 Urine Color Dkyellow Urine Appearance Cloudy Urine pH 5.0 Ur Specific [place] >= 1.030 H Urine Protein Negative Urine Glucose (UA) Negative Urine Ketones Negative Urine Blood Negative Urine Nitrite Negative Urine Bilirubin Negative Urine Urobilinogen Negative Ur Leukocyte Esterase Negative aaox3 ambulating no acute distress Assessment: 04/23/17 11:25 withdrawal sx Plan: continue detox increase fluids
--- NOTE | 2017-04-23 12:31 | CONSULT ---
[facility] Psychiatric Consult - Data Date of interview: 04/23/17 Admission source: [facility] Identifying data: Readmission to [facility] for this 52 y/o AA female seeking detox treatment on for heroin dependence.Patient is ,a mother of four,domiciled and employed. Substance Abuse History: Confirmed by the patient in this session. Smoking Cessation. Smoking history: Current every day smoker. Have you smoked in the past 12 months: Yes. Aproximately how many cigarettes per day: 7. Cigars Per Day: 0. Hx Chewing Tobacco Use: No. Initiated information on smoking cessation : Yes. 'Breaking Loose' booklet given: 04/22/17. - Substance & Tx. History. Hx Alcohol Use: No. Hx Substance Use: Yes. Substance Use Type: Heroin. Hx Substance Use Treatment: Yes (last detox [facility] 07/2016). - Substances Abused. Heroin. Route: Inhalation. Frequency: Daily. Amount used: 3 bags. Age of first use: 51. Date of Last Use: 04/21/17 Medical History: Weight loss,dyspepsia and a history of orthosurgery for fracture of left ankle (ORIF procedure). Psychiatric History: Patient denies. Physical/Sexual Abuse/Trauma History: No reported history of abuse. Additional Comment: Urine Drug Screen Results: OPI-Opiates.Noted. Mental Status Exam - Mental Status Exam Alert and Oriented to: Time, Place, Person Cognitive Function: Good Patient Appearance: Well Groomed (thin habitus) Mood: Hopeful, Euthymic Affect: Appropriate, Normal Range Patient Behavior: Fatigued, Cooperative Speech Pattern: Clear Voice Loudness: Normal Thought Process: Intact, Goal Oriented Thought Disorder: Not Present Hallucinations: Denies Suicidal Ideation: Denies Homicidal Ideation: Denies Insight/Judgement: Poor Sleep: Poorly, Difficulty falling asleep (wants ambien) Appetite: Poor, Weight loss Muscle strength/Tone: Normal Gait/Station: Normal Psychiatric Findings - Problem List ([place] 1, 2,3) (1) Opioid dependence with withdrawal Current Visit: Yes Status: Acute (2) Nicotine dependence Current Visit: Yes Status: Acute Qualifiers: Nicotine product type: cigarettes Substance use status: uncomplicated Qualified Code(s): F17.210 - Nicotine dependence, cigarettes, uncomplicated; F17.210 - Nicotine dependence, cigarettes, uncomplicated (3) Insomnia Current Visit: Yes Status: Acute - Initial Treatment Plan Initial Treatment Plan: Psychoeducation.Detoxification.Ambien 5 mg po hs.Patient is made aware of potentiall for parasomnias.Observation.
[2017-04-23] MEDS: THIAMINE HCL 100 MG TABLET (FP) PO SCH (22:17)
[2017-04-24] MEDS: diphenhydrAMINE HCL 50 MG CAPSULE PO PRN (02:00)
[2017-04-24] MEDS: diazePAM 5 MG TABLET PO PRN ×4 (05:53→22:17)
[2017-04-24] MEDS ORDERED: METHADONE HCL 5 MG TABLET (FOR DETOX USE ONLY) PO ONE (10:00)
--- NOTE | 2017-04-24 10:01 | PN ---
S COWS - Scale Resting Pulse: 0= [place] 80 or Below Sweatin=Flushed/Facial Moisture Restless Observation: 1= Difficult to Sit Still Pupil Size: 1= Pupils >than Normal Bone or Joint Aches: 4=Acute Joint/Muscle Pain Runny Nose/ Eye Tearin= None GI Upset > 30mins: 0= None Tremor Observation of Outstretched Hands: 2= Slight Tremor Visible Yawning Observation: 1= 1-2x During Session Anxiety or Irritability: 2=Irritable/Anxious Goose Flesh Skin: 3=Piloerection COWS Score: 16 [facility] Progress Note (SOAP) Subjective: Interrupted sleep, chills, night sweats, body aches Objective: 04/24/17 10:04 Vital Signs Temperature 97.3 F L 04/24/17 06:30 Pulse Rate 57 L 04/24/17 06:30 Respiratory Rate 18 04/24/17 06:30 Blood Pressure 127/79 04/24/17 06:30 O2 Sat by Pulse Oximetry (%) Laboratory Last Values WBC 6.3 K/mm3 (4.0-10.0) 04/23/17 06:00 RBC 4.93 M/mm3 (3.60-5.2) 04/23/17 06:00 Hgb 14.3 GM/dL (10.7-15.3) 04/23/17 06:00 Hct 43.5 % (32.4-45.2) 04/23/17 06:00 MCV 88.3 fl (80-96) 04/23/17 06:00 MCH 29.1 pg (25.7-33.7) 04/23/17 06:00 MCHC 32.9 g/dl (32.0-36.0) 04/23/17 06:00 RDW 14.6 % (11.6-15.6) D 04/23/17 06:00 Plt Count 203 K/MM3 (134-434) 04/23/17 06:00 MPV 9.2 fl (7.5-11.1) 04/23/17 06:00 Sodium 141 mmol/L (136-145) 04/23/17 06:00 Potassium 4.2 mmol/L (3.5-5.1) 04/23/17 06:00 Chloride 105 mmol/L (98-107) 04/23/17 06:00 Carbon Dioxide 29 mmol/L (21-32) 04/23/17 06:00 Anion Gap 7 (8-16) L 04/23/17 06:00 BUN 15 mg/dL (7-18) 04/23/17 06:00 Creatinine 0.7 mg/dL (0.55-1.02) 04/23/17 06:00 Creat Clearance w eGFR > 60 (>60) 04/23/17 06:00 Random Glucose 86 mg/dL (74-106) 04/23/17 06:00 Calcium 9.9 mg/dL (8.5-10.1) 04/23/17 06:00 Total Bilirubin 0.5 mg/dL (0.2-1.0) 04/23/17 06:00 AST 11 U/L (15-37) L D 04/23/17 06:00 ALT 21 U/L (12-78) 04/23/17 06:00 Alkaline Phosphatase 122 U/L (45-117) H 04/23/17 06:00 Total Protein 7.5 g/dl (6.4-8.2) 04/23/17 06:00 Albumin 3.8 g/dl (3.4-5.0) 04/23/17 06:00 Urine Color Dkyellow 04/22/17 15:58 Urine Appearance Cloudy 04/22/17 15:58 Urine pH 5.0 (5.0-8.0) 04/22/17 15:58 Ur Specific [place] >= 1.030 (1.005-1.025) H 04/22/17 15:58 Urine Protein Negative (NEGATIVE) 04/22/17 15:58 Urine Glucose (UA) Negative (NEGATIVE) 04/22/17 15:58 Urine Ketones Negative (NEGATIVE) 04/22/17 15:58 Urine Blood Negative (NEGATIVE) 04/22/17 15:58 Urine Nitrite Negative (NEGATIVE) 04/22/17 15:58 Urine Bilirubin Negative (NEGATIVE) 04/22/17 15:58 Urine Urobilinogen Negative mg/dL (0.2-1.0) 04/22/17 15:58 Ur Leukocyte Esterase Negative (NEGATIVE) 04/22/17 15:58 RPR Titer Nonreactive (NONREACTIVE) 04/23/17 06:00 Labs noted Assessment: 04/24/17 10:05 Withdrawal sx Plan: Continue detox
[2017-04-24] MEDS: PRENATAL VITAMINS W/ FOLIC ACID TABLET (FP) PO SCH (10:44)
[2017-04-24] MEDS: NICOTINE 14 MG/24 HOURS TOPICAL PATCH TD SCH (10:45)
--- NOTE | 2017-04-24 13:16 | EKG ---
Test Reason : Blood Pressure : / mmHG Vent. Rate : 061 BPM Atrial Rate : 061 BPM P-R Int : 172 ms QRS Dur : 086 ms QT Int : 420 ms P-R-T Axes : 042 022 029 degrees QTc Int : 422 ms NORMAL SINUS RHYTHM WITH SINUS ARRHYTHMIA NORMAL ECG NO PREVIOUS ECGS AVAILABLE Confirmed by KELLY BHATIA, NILAM ([id number]) on 04/24/2017 1:16:12 PM Referred By: Confirmed By:NILAM MENDOZA MD
[2017-04-24] MEDS: IBUPROFEN 400 MG TABLET (FP) PO PRN (15:10)
[2017-04-24] MEDS: THIAMINE HCL 100 MG TABLET (FP) PO SCH (22:17)
[2017-04-24] MEDS: ZOLPIDEM TARTRATE 5 MG TABLET PO PRN (22:17)
[2017-04-25] MEDS: diphenhydrAMINE HCL 50 MG CAPSULE PO PRN (00:56)
[2017-04-25] MEDS: diazePAM 5 MG TABLET PO PRN ×2 (06:01→10:25)
--- NOTE | 2017-04-25 09:11 | PN ---
[facility] Progress Note (SOAP) Subjective: i cant sleep i need something different that what i was given last night sweats irritable Objective: 04/25/17 09:09 Vital Signs Temperature 97.7 F 04/25/17 06:00 Pulse Rate 96 H 04/25/17 06:00 Respiratory Rate 18 04/25/17 06:00 Blood Pressure 108/72 04/25/17 06:00 O2 Sat by Pulse Oximetry (%) aaox3 ambulating no acute distress Assessment: 04/25/17 09:09 withdrawals sx Plan: continue detox increase fluids psych ordered
[2017-04-25] MEDS ORDERED: METHADONE HCL 5 MG TABLET (FOR DETOX USE ONLY) PO ONE (10:00)
[2017-04-25] MEDS: PRENATAL VITAMINS W/ FOLIC ACID TABLET (FP) PO SCH (10:25)
[2017-04-25] MEDS: NICOTINE 14 MG/24 HOURS TOPICAL PATCH TD SCH (10:27)
--- NOTE | 2017-04-25 22:07 | PN ---
[facility] Progress Note Note: Psychiatry Attending's on-call note : Met with the patient (earlier during the day). Reason : complaint of insomnia. Ms Simmons has requested seroquel. She endorses past history of adequate response. Review of pharmacy claims confirm previous scripts for seroquel. Intervention : Sleep hygiene was discussed. Seroquel 50 mg po hs.Ordered. Side effects/benefits were discussed with the patient. Consent (verbal) given.Will follow. Stable mental status.Benign hospital course.
[2017-04-25] MEDS: THIAMINE HCL 100 MG TABLET (FP) PO SCH (22:25)
[2017-04-25] MEDS: ZOLPIDEM TARTRATE 5 MG TABLET PO PRN (22:25)
[2017-04-25] MEDS: QUEtiapine FUMARATE 50 MG TABLET PO SCH (22:27)
[2017-04-26] MEDS: diphenhydrAMINE HCL 50 MG CAPSULE PO PRN (00:52)
[2017-04-26] MEDS: IBUPROFEN 400 MG TABLET (FP) PO PRN (06:01)
[2017-04-26] MEDS ORDERED: METHADONE HCL 10 MG TABLET (FOR DETOX USE ONLY) PO ONE (10:00)
[2017-04-26] MEDS: PRENATAL VITAMINS W/ FOLIC ACID TABLET (FP) PO SCH (10:40)
[2017-04-26] MEDS: NICOTINE 14 MG/24 HOURS TOPICAL PATCH TD SCH (10:40)
--- NOTE | 2017-04-26 12:45 | PN ---
[facility] Progress Note (SOAP) Subjective: Body aches, interrupted sleep, agitation Objective: 04/26/17 12:42 Vital Signs Temperature 97.1 F L 04/26/17 09:42 Pulse Rate 64 04/26/17 09:42 Respiratory Rate 18 04/26/17 09:42 Blood Pressure 113/77 04/26/17 09:42 O2 Sat by Pulse Oximetry (%) Laboratory Last Values WBC 6.3 K/mm3 (4.0-10.0) 04/23/17 06:00 RBC 4.93 M/mm3 (3.60-5.2) 04/23/17 06:00 Hgb 14.3 GM/dL (10.7-15.3) 04/23/17 06:00 Hct 43.5 % (32.4-45.2) 04/23/17 06:00 MCV 88.3 fl (80-96) 04/23/17 06:00 MCH 29.1 pg (25.7-33.7) 04/23/17 06:00 MCHC 32.9 g/dl (32.0-36.0) 04/23/17 06:00 RDW 14.6 % (11.6-15.6) D 04/23/17 06:00 Plt Count 203 K/MM3 (134-434) 04/23/17 06:00 MPV 9.2 fl (7.5-11.1) 04/23/17 06:00 Sodium 141 mmol/L (136-145) 04/23/17 06:00 Potassium 4.2 mmol/L (3.5-5.1) 04/23/17 06:00 Chloride 105 mmol/L (98-107) 04/23/17 06:00 Carbon Dioxide 29 mmol/L (21-32) 04/23/17 06:00 Anion Gap 7 (8-16) L 04/23/17 06:00 BUN 15 mg/dL (7-18) 04/23/17 06:00 Creatinine 0.7 mg/dL (0.55-1.02) 04/23/17 06:00 Creat Clearance w eGFR > 60 (>60) 04/23/17 06:00 Random Glucose 86 mg/dL (74-106) 04/23/17 06:00 Calcium 9.9 mg/dL (8.5-10.1) 04/23/17 06:00 Total Bilirubin 0.5 mg/dL (0.2-1.0) 04/23/17 06:00 AST 11 U/L (15-37) L D 04/23/17 06:00 ALT 21 U/L (12-78) 04/23/17 06:00 Alkaline Phosphatase 122 U/L (45-117) H 04/23/17 06:00 Total Protein 7.5 g/dl (6.4-8.2) 04/23/17 06:00 Albumin 3.8 g/dl (3.4-5.0) 04/23/17 06:00 Urine Color Dkyellow 04/22/17 15:58 Urine Appearance Cloudy 04/22/17 15:58 Urine pH 5.0 (5.0-8.0) 04/22/17 15:58 Ur Specific [place] >= 1.030 (1.005-1.025) H 04/22/17 15:58 Urine Protein Negative (NEGATIVE) 04/22/17 15:58 Urine Glucose (UA) Negative (NEGATIVE) 04/22/17 15:58 Urine Ketones Negative (NEGATIVE) 04/22/17 15:58 Urine Blood Negative (NEGATIVE) 04/22/17 15:58 Urine Nitrite Negative (NEGATIVE) 04/22/17 15:58 Urine Bilirubin Negative (NEGATIVE) 04/22/17 15:58 Urine Urobilinogen Negative mg/dL (0.2-1.0) 04/22/17 15:58 Ur Leukocyte Esterase Negative (NEGATIVE) 04/22/17 15:58 RPR Titer Nonreactive (NONREACTIVE) 04/23/17 06:00 Labs noted Assessment: Withdrawal sx Plan: Continue detox Increase oral hydration
[2017-04-26] MEDS: ZOLPIDEM TARTRATE 5 MG TABLET PO PRN (21:12)
[2017-04-26] MEDS: QUEtiapine FUMARATE 50 MG TABLET PO SCH (22:17)
[2017-04-26] MEDS: THIAMINE HCL 100 MG TABLET (FP) PO SCH (22:17)
[2017-04-27] MEDS: IBUPROFEN 400 MG TABLET (FP) PO PRN (05:49)
[2017-04-27] MEDS ORDERED: METHADONE HCL 5 MG TABLET (FOR DETOX USE ONLY) PO ONE (06:00)
[2017-04-27 06:52] VITALS: BP 118/84; PULSE 68; TEMP 96.1
--- NOTE | 2017-04-27 08:39 | DS ---
[facility] Detox Discharge Summary Admission Date: 04/22/17 Discharge Date: 04/27/17 - History Present History: Opioid Dependence Additional Comments: follow up with [facility] as arrangement Pertinent Past History: nicotine dependence insomnia - Physical Exam Results Vital Signs: Vital Signs Temperature 96.1 F L 04/27/17 06:52 Pulse Rate 68 04/27/17 06:52 Respiratory Rate 16 04/27/17 06:52 Blood Pressure 118/84 04/27/17 06:52 O2 Sat by Pulse Oximetry (%) - Treatment Hospital Course: Detox Protocol Followed, Detoxed Safely, Responded well, Discharged Condition Good Patient has Accepted a Rehab Referral to: declined - Medication Discharge Medications: Ambulatory Orders NK [No Known Home Medication] 04/22/17 - AMA Did Patient Leave Against Medical Advice: No
[2017-04-27] MEDS: PRENATAL VITAMINS W/ FOLIC ACID TABLET (FP) PO SCH (09:38)
[2017-04-27] MEDS: NICOTINE 14 MG/24 HOURS TOPICAL PATCH TD SCH (09:38)
== END 2017-04-27 10:08 | disposition home or self-care (01) | DRG 773 ==
LOC: YASAS 10:56 → Y6N 15:14
PROVIDERS: ADMIT Internal Medicine; ATTEND Internal Medicine
PROC: HZ2ZZZZ Detoxification Services for Substance Abuse Treatment (ICD-10-PCS; principal; 2017-04-22)
DX: F11.23 Opioid dependence with withdrawal (principal); F17.210 Nicotine dependence, cigarettes, uncomplicated; G47.00 Insomnia, unspecified
CPT/HCPCS: 36415; 80053; 81003; 85027; 86593; 93005; 93010

== ENCOUNTER 2018-07-23 16:46 | Emergency (ER) | payer OTHER ==
[2018-07-23] MEDS ORDERED: SODIUM CHLORIDE 1,000 ML IV STA (17:10)
--- NOTE | 2018-07-23 17:10 | PDOC ---
Rapid Medical Evaluation Chief Complaint: Pain Time Seen by Provider: 07/23/18 17:09 Medical Evaluation: Allergies Allergy/AdvReac Type Severity Reaction Status Date / Time No Known Allergies Allergy Verified 04/22/17 14:50 07/23/18 17:09 I have performed a brief in-person evaluation of this patient. The patient presents with a chief complaint of: abdominal cramping and brown diarrhea Pertinent physical exam findings: abd diffusely tender I have ordered the following: labs, urine, iv The patient will proceed to the ED for further evaluation. Discharge Disposition - Diagnosis Abdominal pain - Referrals - Patient Instructions - Post Discharge Activity
[2018-07-23 17:11] VITALS: BP 158/98; PULSE 92; TEMP 98.4; BMI 25.5
--- NOTE | 2018-07-23 18:15 | PDOC ---
History of Present Illness - General Chief Complaint: Pain Stated Complaint: NAUSEA/ABD PAIN Time Seen by Provider: 07/23/18 17:09 History Source: Patient, Spouse Exam Limitations: No Limitations - History of Present Illness Initial Comments: 07/23/18 18:10 Pt. is a 53 y.o. F w/ PMHx of heroin abuse, denies any other medical conditions , presents to the ED with lower abdominal pain (9/10 in severity), nausea and non-bloody loose stool since yesterday when it suddenly began. Pt. states that she has had a subjective fever and chills. Pt. endorses urinating more frequently but denies any dysuria or hematuria. Pt. states that she received the Flu vaccine last Saturday. Pt. recently saw a doctor, cannot recall name, yesterday for this abdominal pain and received an antibiotic that she also cannot recall. Pt. states she was treated for PID 2? years ago (per our chart records 4 years ago) and that her pain feels similar to her pain at that time. 07/23/18 18:15 CBC, CMP, UA, IVF, IV Tylenol was ordered to see if pain localizes to differentiate between GI vs. etiology. CT Abd. Pelvisordered to r/o diverticulitis. Pt. is afebrile. We will await labs to evaluate for ongoing infectious process. 07/23/18 19:08 Pt. endorsed over to Dr. Bear. Past History - Past Medical History Allergies/Adverse Reactions: Allergies Allergy/AdvReac Type Severity Reaction Status Date / Time No Known Allergies Allergy Verified 07/23/18 17:11 Home Medications: Ambulatory Orders NK [No Known Home Medication] 04/22/17 Anemia: No Asthma: No Cancer: No Cardiac Disorders: No CVA: No COPD: No CHF: No Dementia: No Diabetes: No GI Disorders: No Disorders: No HTN: No Hypercholesterolemia: No Kidney Stones: No Liver Disease: No Seizures: No Thyroid Disease: No - Surgical History Abdominal Surgery: No Appendectomy: No Cardiac Surgery: No Cholecystectomy: No Lung Surgery: No Neurologic Surgery: No Orthopedic Surgery: Yes (L ANKLE FX REPAIR WITH ORIF) - Reproductive History (#): 8 Para: 4 Cervical CA: No Dysfunctional Uterine Bleeding: No Ectopic : No Endometrial CA: No PID: Yes (in 11/2014) Polycystic Ovaries: No Therapeutic (s) & number: Yes (2) Tubal Ligation: No Spontaneous : 2 - Suicide/Smoking/Psychosocial Hx Smoking History: Never smoked Have you smoked in the past 12 months: Yes Number of Cigarettes Smoked Daily: 7 Cigars Per Day: 0 Information on smoking cessation initiated: No 'Breaking Loose' booklet given: 04/22/17 Hx Alcohol Use: No Drug/Substance Use Hx: No Substance Use Type: Heroin Hx Substance Use Treatment: Yes (last detox [facility] 07/2016) Review of Systems - Review of Systems Constitutional: Yes: Chills, Fever, Loss of Appetite HEENTM: No: Symptoms Reported Respiratory: No: Symptoms reported Cardiac (ROS): Yes: Edema (Pt. states augie tlower extremity swelling comes and goes). No: Symptoms Reported, Chest Pain ABD/GI: Yes: Diarrhea, Nausea, Poor Appetite, Poor Fluid Intake. No: Abd. Pain w/ defecation, Rectal Bleeding : Yes: Frequency, Urgency. No: Burning, Dysuria, Discharge, Flank Pain, Hematuria, Incontinence, Pain Musculoskeletal: No: Symptoms Reported Integumentary: No: Symptoms Reported Neurological: No: Symptoms reported Psychiatric: Yes: Other (substance abuse ) Endocrine: No: Symptoms Reported Hematologic/Lymphatic: No: Symptoms Reported *Physical Exam - Vital Signs Last Vital Signs Temp Pulse Resp BP Pulse Ox 98.4 F 92 H 18 158/98 98 07/23/18 17:09 07/23/18 17:09 07/23/18 17:09 07/23/18 17:09 07/23/18 17:09 - Physical Exam General Appearance: Yes: Nourished, Appropriately Dressed, Apparent Distress, Moderate Distress HEENT: positive: Normal ENT Inspection, Normal Voice, Symmetrical, Pharynx Normal, Hearing Grossly Normal. negative: Pharyngeal Erythema, Tonsillar Exudate, Tonsillar Erythema Neck: positive: Trachea midline, Supple Respiratory/Chest: positive: Lungs Clear, Decreased Breath Sounds. negative: Accessory Muscle Use, Labored Respiration, Rales, Rhonchi, Wheezing Cardiovascular: positive: Regular Rhythm, Regular Rate, S1, S2, Edema. negative : JVD, Murmur Vascular Pulses: Dorsalis-Pedis (R): 2+ (2+ radial ), Doralis-Pedis (L): 2+ (2+ radial ) Gastrointestinal/Abdominal: positive: Tender, Increased Bowel Sounds, Guarding, Rebound, Tenderness, Hernia (??? Pt. refused repeated attempt ) Rectal Exam: positive: deferred Musculoskeletal: positive: Normal Inspection. negative: CVA Tenderness Extremity: positive: Normal Inspection, Normal Range of Motion, Swelling. negative: Tender, Coldness, Calf Tenderness, Erythema Integumentary: positive: Normal Color, Dry, Warm Neurologic: positive: Fully Oriented, Alert, Normal Mood/Affect, Normal Response , Respond to painful stimul, Responsive Moderate Sedation - Procedure Monitoring Vital Signs: Procedure Monitoring Vital Signs Temperature 98.4 F 07/23/18 17:09 Pulse Rate 92 H 07/23/18 17:09 Respiratory Rate 18 07/23/18 17:09 Blood Pressure 158/98 07/23/18 17:09 O2 Sat by Pulse Oximetry (%) 98 07/23/18 17:09 *DC/Admit/Observation/Transfer Diagnosis at time of Disposition: Abdominal pain - Referrals Referrals: Mohit Massey MD [Primary Care Provider] - - Patient Instructions - Post Discharge Activity
--- NOTE | 2018-07-23 18:25 | PDOC ---
Attending Attestation - HPI HPI: 07/23/18 18:58 The patient is a 53 year old female with a past medical history of heroin abuse here today for evaluation of abdominal pain. The patient reports that her abdominal is located in the lower quadrant, a 9/10 in severity, and began yesterday. She notes associated fever, chills, nausea, loose stool, and increase in urinary frequency. Patient denies headache, lightheadedness. Denies chest pain, shortness of breath. Denies vomiting, diarrhea. Denies lower extremity edema. Allergies: NKA PCP: Mohit Massey - Medical Decision Making 07/23/18 18:58 Documentation prepared by YOSEF Anaya, acting as medical science liaison for Ricki Marroquin MD. <Rk Lopez - Last Filed: 07/23/18 19:01> - Resident Resident Name: Alex Monge - ED Attending Attestation I have performed the following: I have examined & evaluated the patient, The case was reviewed & discussed with the resident, I agree w/resident's findings & plan, Exceptions are as noted - Physicial Exam PE: 07/23/18 19:51 Patient is awake and alert, writhing in pain, well-nourished, in moderate distress Normocephalic and atraumatic PERRLA, EOMI, no scleral icterus, conjunctivae pink mm-dry cta rrr Abdomen soft, distended, tympanitic, with hyperactive bowel sounds; diffuse tenderness is noted most pronounced in the left lower quadrant; there is no guarding or rebound; no CVA tenderness bilaterally - Medical Decision Making 07/23/18 19:53 Patient is a 53-year-old female with previous history of polysubstance abuse who presents with diffuse abdominal pain, nausea and loose watery stools. In the ER, patient is writhing in pain, with a diffusely tender tympanitic abdomen. Differential diagnoses includes SBO versus perforated viscus versus diverticulitis versus colitis. Will obtain CBC/CMP/UA. Will aggressively hydrate. We'll administer antiemetics and pain meds. Will obtain CT with by mouth and IV contrast. Will reassess. 07/23/18 23:[address] Patient complaining of recurrent severe pain. We'll administer additional pain meds. Awaiting CT interpretation. 07/23/18 23:57 CT abdomen pelvis reveals large fibroid uterus and a large septated adnexal mass. No suspicion for torsion. Will discharge with tramadol with ENGINE TESTER follow- up. Due to technical malfunction, I am unable to prescribe tramadol this time. ROMANA Florez will be prescribing in my stead. She was not involved clinically in the care of this patient. <Ricki Marroquin - Last Filed: 07/23/18 23:57>
[2018-07-23] MEDS ORDERED: ACETAMINOPHEN 1000 MG/100 ML VIAL (NON FORMULARY) IVPB ONE (18:41)
[2018-07-23] MEDS ORDERED: ACETAMINOPHEN INJECTION 100 ML IVPB ONE (19:23)
[2018-07-23 19:45] LABS: URINE APPEARANCE SLCLOUDY; URINE BILIRUBIN NEGATIVE (<2.0 mg/dL); URINE COLOR DKYELLOW; URINE GLUCOSE (UA) NEGATIVE (NEGATIVE); URINE KETONE TRACE (NEGATIVE); URINE LEUK ESTERASE 2+ (NEGATIVE); URINE NITRITE NEGATIVE (NEGATIVE); URINE PROTEIN 1+ (NEGATIVE); URINE UROBILINOGEN 4.0 E.U/dl mg/dL (0.2-1.0)
[2018-07-23 19:45] LABS: BASO % 0.7 % (0-2.0); EOS % 0.6 % (0-4.5); HEMATOCRIT 41.1 % (32.4-45.2); HEMOGLOBIN 14.4 GM/dL (10.7-15.3); LYMPH % 27.2 % (8-40); MCH 30.8 pg (25.7-33.7); MCHC 34.9 g/dl (32.0-36.0); MEAN CELL VOLUME 88.1 fl (80-96); MEAN PLT VOLUME 8.7 fl (7.5-11.1); MONO % 6.9 % (3.8-10.2); NEUT % 64.6 % (42.8-82.8); PLATELET COUNT 212 K/MM3 (134-434); RBC 4.67 M/mm3 (3.60-5.2); RDW 14.8 % (11.6-15.6); WHITE BLOOD COUNT 10.1 K/mm3 (4.0-10.0)
[2018-07-23] MEDS ORDERED: morphine CARPU-JECT 4 MG/1 ML DISP.SYRIN IVPUSH ONE (19:47)
[2018-07-23] MEDS ORDERED: ONDANSETRON 4 MG/2 ML VIAL IVPUSH ONE (19:49)
[2018-07-23 19:52] LABS: EPI CELLS MODERATE /HPF (FEW); URINE MUCUS RARE
[2018-07-23] MEDS ORDERED: morphine SULFATE 4 MG/ML VIAL ONE ×2 (19:55→23:16)
[2018-07-23] MEDS ORDERED: ONDANSETRON 4 MG/2 ML VIAL ONE (19:55)
[2018-07-23 20:25] LABS: ALBUMIN 3.5 g/dl (3.4-5.0); ALK PHOS 106 U/L (45-117); ANION GAP 8 MMOL/L (8-16); BILIRUBIN,TOTAL 0.3 mg/dL (0.2-1); BLOOD UREA NITROGEN 13 mg/dL (7-18); CALCIUM 9.2 mg/dL (8.5-10.1); CHLORIDE 106 mmol/L (98-107); CO2 27 mmol/L (21-32); CREATININE 0.9 mg/dL (0.55-1.3); GLUCOSE,RANDOM 86 mg/dL (74-106); LIPASE 165 U/L (73-393); POTASSIUM 3.6 mmol/L (3.5-5.1); SGOT/AST 14 U/L (15-37); SGPT/ALT 21 U/L (13-61); SODIUM 141 mmol/L (136-145); TOT PROT 7.1 g/dl (6.4-8.2)
--- NOTE | 2018-07-23 21:26 | PDOC ---
*Physical Exam - Vital Signs Last Vital Signs Temp Pulse Resp BP Pulse Ox 98.4 F 92 H 18 158/98 98 07/23/18 17:09 07/23/18 17:09 07/23/18 17:09 07/23/18 17:09 07/23/18 17:09 ED Treatment Course - LABORATORY CBC & Chemistry Diagram: 07/23/18 19:10 07/23/18 19:10 - ADDITIONAL ORDERS Additional order review: Laboratory Results 07/23/18 07/23/18 19:10 18:52 Sodium 141 Potassium 3.6 Chloride 106 Carbon Dioxide 27 Anion Gap 8 BUN 13 Creatinine 0.9 Creat Clearance w eGFR > 60 Random Glucose 86 Calcium 9.2 Total Bilirubin 0.3 AST 14 L ALT 21 Alkaline Phosphatase 106 Total Protein 7.1 Albumin 3.5 Lipase 165 Urine Color Dkyellow Urine Appearance Slcloudy Urine pH 5.0 Ur Specific [place] 1.034 Urine Protein 1+ H Urine Glucose (UA) Negative Urine Ketones Trace H Urine Blood 1+ H Urine Nitrite Negative Urine Bilirubin Negative Urine Urobilinogen 4.0 e.u/dl H Ur Leukocyte Esterase 2+ H Urine WBC (Auto) 81 Urine RBC (Auto) 14 Ur Epithelial Cells Moderate Urine Mucus Rare 07/23/18 19:10 RBC 4.67 MCV 88.1 MCHC 34.9 RDW 14.8 MPV 8.7 Neutrophils % 64.6 Lymphocytes % 27.2 Monocytes % 6.9 Eosinophils % 0.6 Basophils % 0.7 - RADIOLOGY Radiology Studies Ordered: Category Date Time Status ABDOMEN FLAT & UPRIGHT [RAD] Stat Radiology 07/23/18 19:53 Taken CHEST PA & LAT [RAD] Stat Radiology 07/23/18 19:53 Taken - Medications Given in the ED: ED Medications Discontinued Medications Generic Name Dose Route Start Last Admin Trade Name Freq PRN Reason Stop Dose Admin Acetaminophen 1,000 mg 07/23/18 18:41 07/23/18 19:33 Ofirmev Injection - IVPB 07/23/18 18:42 1,000 mg ONCE ONE Administration Sodium Chloride 1,000 mls @ 1,000 mls/hr 07/23/18 17:10 07/23/18 19:33 Normal Saline - IV 07/23/18 18:09 1,000 mls/hr ASDIR STA Administration Morphine Sulfate 4 mg 07/23/18 19:47 07/23/18 19:59 Morphine Injection - IVPUSH 07/23/18 19:48 4 mg ONCE ONE Administration Ondansetron HCl 4 mg 07/23/18 19:49 07/23/18 19:59 Zofran Injection IVPUSH 07/23/18 19:50 4 mg ONCE ONE Administration Medical Decision Making - Medical Decision Making Patient signed out from Dr. Monge 53yo F with nausea, diarrhea, and 9/10 abdominal pain. Given 1LNS, tylenol, morphine, and zofran Patient seen eating in stretcher. Advised her to abstain as we need to obtain CTAP results UA shows infection with WBCs, but likely contamination given moderate epithelial cells Lactate negate CXR with no evidence of free air Finished oral contrast about twenty minutes ago. 07/23/18 21:26 CT: "1. Enlarged uterus with multiple masses consistent with leiomyomata 2. Septated cystic structure left adnexa which may represent a pedunculated fibroid or possibly is ovarian in etiology. 3. Cystic structures right adnexa 4. No evidence of diverticulitis or acute pathology within the abdomen or pelvis. Patient's pain likely caused by significant fibroids. Plan to discharge with bench worker follow-up Ultram prescription sent to pharmacy Patient discharged 07/24/18 06:22 *DC/Admit/Observation/Transfer Diagnosis at time of Disposition: Abdominal pain - Discharge Dispostion Disposition: HOME Condition at time of disposition: Stable - Prescriptions Prescriptions: Tramadol HCl 50 mg PO Q8H PRN #20 tablet MDD 3 PRN Reason: Pain traMADol HCL [Ultram -] 50 mg PO Q8H #20 tablet MDD 3 - Referrals Referrals: Mohit Massey MD [Primary Care Provider] - Bessy Baltazar MD [Staff Physician] - - Patient Instructions Printed Discharge Instructions: DI for Uterine Fibroids Additional Instructions: You came into the ED for abdominal pain. CT imaging indicates that you have fibroids which are probably causing your pain. Prescription for pain has been sent to your pharmacy. We have referred you to an bench worker specialist who can further evaluate your fibroids. Call the number provided and make an appointment for this week. Immediate medical attention is required if you have: you develop worsening pain , high fevers, persistent nausea, vomiting, profuse vaginal bleeding (more than two pads per hour for two hours) or any new or concerning symptoms. If you think you are having an emergency, call for emergency medical services or present to the emergency department right away. - Post Discharge Activity
[2018-07-23] MEDS ORDERED: morphine SULFATE 4 MG/ML VIAL IVPUSH ONE (23:15)
== END 2018-07-24 00:08 | disposition home or self-care (01) ==
LOC: JER 16:46
PROC: 3E0337Z Introduction of Electrolytic and Water Balance Substance into Peripheral Vein, Percutaneous Approach (ICD-10-PCS; principal; 2018-07-23)
PROC: 3E033NZ Introduction of Analgesics, Hypnotics, Sedatives into Peripheral Vein, Percutaneous Approach (ICD-10-PCS; 2018-07-23)
PROC: 3E033NZ Introduction of Analgesics, Hypnotics, Sedatives into Peripheral Vein, Percutaneous Approach (ICD-10-PCS; 2018-07-23)
PROC: 3E033NZ Introduction of Analgesics, Hypnotics, Sedatives into Peripheral Vein, Percutaneous Approach (ICD-10-PCS; 2018-07-23)
PROC: 3E033GC Introduction of Other Therapeutic Substance into Peripheral Vein, Percutaneous Approach (ICD-10-PCS; 2018-07-23)
DX: D25.9 Leiomyoma of uterus, unspecified (principal)
CPT/HCPCS: 36415; 71046-TC-FY; 74019-TC-FY; 74177-TC; 80053; 81003; 81015; 83605; 83690; 85025; 87086; 99283-25; J0131; J7030; Q9967

== ENCOUNTER 2020-03-20 11:34 | Inpatient (IN) | payer OTHER ==
[2020-03-20] MEDS ORDERED: ACETAMINOPHEN 1000 MG/100 ML VIAL (NON FORMULARY) IVPB ONE (11:48)
[2020-03-20] MEDS ORDERED: ACETAMINOPHEN INJECTION 100 ML IVPB ONE (12:00)
[2020-03-20] MEDS ORDERED: SODIUM CHLORIDE 1,000 ML IV STA (12:06)
[2020-03-20 12:29] LABS: BASO % 0.2 % (0-2.0); EOS % 0.1 % (0-4.5); HEMATOCRIT 41.2 % (32.4-45.2); LYMPH % 5.7 % (8-40); MCH 32.6 pg (25.7-33.7); MEAN CELL VOLUME 95.9 fl (80-96); MEAN PLT VOLUME 8.3 fl (7.5-11.1); MONO % 9.2 % (3.8-10.2); NEUT % 84.8 % (42.8-82.8); PLATELET COUNT 237 K/MM3 (134-434); RBC 4.29 M/mm3 (3.60-5.2); RDW 14.6 % (11.6-15.6); WHITE BLOOD COUNT 13.7 K/mm3 (4.0-10.0)
[2020-03-20 12:38] LABS: INR 1.38 (0.83-1.09); PROTHROMBIN TIME (PATIENT) 16.3 SEC (9.7-13.0)
[2020-03-20 12:40] LABS: ACTIVATED PTT 33.8 SECONDS (25.2-36.5)
[2020-03-20 12:58] LABS: ALBUMIN 2.9 g/dl (3.4-5.0); ALK PHOS 100 U/L (45-117); ANION GAP 9 MMOL/L (8-16); BILIRUBIN,TOTAL 0.7 mg/dL (0.2-1); BLOOD UREA NITROGEN 11.3 mg/dL (7-18); CALCIUM 8.9 mg/dL (8.5-10.1); CHLORIDE 104 mmol/L (98-107); CO2 25 mmol/L (21-32); CREATININE 0.7 mg/dL (0.55-1.3); GLUCOSE,RANDOM 134 mg/dL (74-106); POTASSIUM 3.7 mmol/L (3.5-5.1); SGOT/AST 12 U/L (15-37); SGPT/ALT 14 U/L (13-61); SODIUM 139 mmol/L (136-145); TOT PROT 6.8 g/dl (6.4-8.2)
[2020-03-20 13:53] LABS: ANISOCYTOSIS 1+; MACROCYTOSIS 0; PLATELET ESTIMATE NORMAL
[2020-03-20] MEDS ORDERED: IBUPROFEN 600 MG TABLET (FP) PO ONE ×2 (16:53→17:33)
[2020-03-20] MEDS ORDERED: metroNIDAZOLE 500 MG TABLET PO ONE (17:00)
[2020-03-20] MEDS ORDERED: morphine CARPU-JECT 4 MG/1 ML DISP.SYRIN IVPUSH ONE ×2 (17:14→19:09)
[2020-03-20] MEDS ORDERED: ONDANSETRON 4 MG/2 ML VIAL IVPUSH ONE (17:14)
[2020-03-20] MEDS ORDERED: ONDANSETRON 4 MG/2 ML VIAL IVPB ONE (17:28)
[2020-03-20] MEDS ORDERED: morphine SULFATE 4 MG/ML VIAL ONE ×2 (17:32→19:31)
[2020-03-20] MEDS ORDERED: metroNIDAZOLE 250 MG TABLET ONE (17:33)
[2020-03-20] MEDS ORDERED: KETOROLAC TROMETHAMINE 15 MG/ML VIAL IVPUSH ONE (18:36)
[2020-03-20] MEDS ORDERED: KETOROLAC TROMETHAMINE 60 MG/2 ML VIAL IVPB ONE (18:38)
[2020-03-20] MEDS ORDERED: KETOROLAC TROMETHAMINE 30 MG/1 ML VIAL ONE (18:42)
[2020-03-20 18:43] LABS: URINE APPEARANCE CLEAR; URINE BILIRUBIN NEGATIVE (NEGATIVE); URINE COLOR YELLOW; URINE GLUCOSE (UA) NEGATIVE (NEGATIVE); URINE KETONE NEGATIVE (NEGATIVE)
[2020-03-20 18:44] LABS: EPI CELLS 36.8 /uL (0-25.1); HYALINE CASTS 1.54 /uL (0-3.1); PH,URINE 5.5 (5.0-8.0); URINE LEUK ESTERASE NEGATIVE (NEGATIVE); URINE NITRITE NEGATIVE (NEGATIVE); URINE PROTEIN NEGATIVE (NEGATIVE); URINE RBC 10.2 /uL (0-23.9); URINE WBC 52.6 /uL (0-25.8)
[2020-03-20] MEDS ORDERED: SODIUM CHLORIDE 1,000 ML IV SCH (19:30)
[2020-03-20] MEDS ORDERED: MORPHINE SULFATE 2 MG/ML VIAL ONE (19:32)
[2020-03-20] MEDS ORDERED: ENOXAPARIN NA (PORCINE) 40 MG/0.4 ML DISP.SYRIN SQ ONE (19:36)
[2020-03-20] MEDS: ENOXAPARIN NA (PORCINE) 40 MG/0.4 ML DISP.SYRIN SQ SCH (19:53)
[2020-03-20] MEDS ORDERED: morphine SULFATE 4 MG/ML VIAL IVPUSH ONE (22:18)
[2020-03-21 01:02] LABS: COCAINE, UR NEGATIVE ng/ml (CUTOFF=300); METHADONE, UR NEGATIVE ng/ml (CUTOFF=300); PHENCYCLIDINE,URINE NEGATIVE ng/ml (CUTOFF=25); URINE AMPHETAMINES NEGATIVE ng/ml (CUTOFF=500); URINE BARBITURATES NEGATIVE ng/ml (CUTOFF=200); URINE BENZODIAZEPINES NEGATIVE ng/ml (CUTOFF=200)
[2020-03-21] MEDS ORDERED: morphine SULFATE 4 MG/ML VIAL IVPUSH ONE (01:06)
[2020-03-21 01:32] LABS: OPIATES, URI POSITIVE ng/ml (CUTOFF=300)
[2020-03-21] MEDS: MORPHINE SULFATE 2 MG/ML VIAL IVPUSH PRN ×2 (03:56→09:31)
[2020-03-21] MEDS: morphine SULFATE 4 MG/ML VIAL IVPUSH PRN ×4 (06:48→19:32)
[2020-03-21] MEDS ORDERED: MUPIROCIN 2% TOPICAL OINTMENT FOR DECOLONIZATION NS SCH (10:00)
[2020-03-21] MEDS ORDERED: PIPERACILLIN/TAZOB 4.5 GM 4.5 GM in DEXTROSE 5%-WATER 100 ML IVPB SCH (10:00)
[2020-03-21] MEDS: ENOXAPARIN NA (PORCINE) 40 MG/0.4 ML DISP.SYRIN SQ SCH (10:10)
[2020-03-21] MEDS: SODIUM CHLORIDE 1,000 ML IV SCH ×2 (10:10→23:17)
[2020-03-21] MEDS ORDERED: DEXTROSE 5%-WATER 100 ML IVPB ONE ×2 (11:03→17:16)
[2020-03-21] MEDS ORDERED: PIPERACILLIN/TAZOBACTAM 4.5 GM VIAL IVPB ONE ×2 (11:03→17:16)
[2020-03-21 11:25] LABS: BASO % 0.1 % (0-2.0); EOS % 0.5 % (0-4.5); HEMATOCRIT 40.1 % (32.4-45.2); HEMOGLOBIN 13.6 GM/dL (10.7-15.3); LYMPH % 4.9 % (8-40); MCH 32.2 pg (25.7-33.7); MCHC 33.8 g/dl (32.0-36.0); MEAN CELL VOLUME 95.3 fl (80-96); MEAN PLT VOLUME 8.7 fl (7.5-11.1); MONO % 4.6 % (3.8-10.2); NEUT % 89.9 % (42.8-82.8); PLATELET COUNT 192 K/MM3 (134-434); RBC 4.21 M/mm3 (3.60-5.2); RDW 14.9 % (11.6-15.6); WHITE BLOOD COUNT 8.7 K/mm3 (4.0-10.0)
[2020-03-21 11:47] LABS: ALBUMIN 2.2 g/dl (3.4-5.0); CALCIUM 8.2 mg/dL (8.5-10.1); CREATININE 1.2 mg/dL (0.55-1.3); POTASSIUM 4.1 mmol/L (3.5-5.1); TOT PROT 5.9 g/dl (6.4-8.2)
[2020-03-21 13:00] LABS: ANISOCYTOSIS 0; MACROCYTOSIS 0; PLATELET ESTIMATE NORMAL
[2020-03-21] MEDS ORDERED: LACTATED RINGERS SOLUTION 1000 ML INFUS.BAG IV ONE (14:00)
[2020-03-21] MEDS: PIPERACILLIN/TAZOB 4.5 GM 4.5 GM in DEXTROSE 5%-WATER 100 ML IVPB SCH (17:29)
[2020-03-21] MEDS: ACETAMINOPHEN 1000 MG/100 ML VIAL (NON FORMULARY) IVPB PRN (21:58)
[2020-03-21] MEDS ORDERED: CHLORHEXIDINE GLUCONATE 4% CLEANSER FOR DECOLONIZATION TP SCH (22:00)
[2020-03-22] MEDS: morphine SULFATE 4 MG/ML VIAL IVPUSH PRN ×4 (00:02→22:41)
[2020-03-22] MEDS ORDERED: PIPERACILLIN/TAZOBACTAM 4.5 GM VIAL IVPB ONE ×4 (00:55→17:17)
[2020-03-22] MEDS ORDERED: DEXTROSE 5%-WATER 100 ML IVPB ONE ×3 (00:56→17:16)
[2020-03-22] MEDS: PIPERACILLIN/TAZOB 4.5 GM 4.5 GM in DEXTROSE 5%-WATER 100 ML IVPB SCH ×3 (03:03→18:13)
[2020-03-22] MEDS: ACETAMINOPHEN 1000 MG/100 ML VIAL (NON FORMULARY) IVPB PRN ×2 (04:06→15:11)
[2020-03-22] MEDS ORDERED: POLYETHYLENE GLYCOL 3350 255 GM BTL PO ONE (07:36)
[2020-03-22] MEDS: SODIUM CHLORIDE 1,000 ML IV SCH ×2 (08:00→18:15)
[2020-03-22 08:18] LABS: BASO % 0.2 % (0-2.0); EOS % 0.4 % (0-4.5); HEMATOCRIT 38.1 % (32.4-45.2); HEMOGLOBIN 12.7 GM/dL (10.7-15.3); MCH 31.4 pg (25.7-33.7); MCHC 33.2 g/dl (32.0-36.0); MEAN CELL VOLUME 94.3 fl (80-96); MEAN PLT VOLUME 8.8 fl (7.5-11.1); MONO % 4.9 % (3.8-10.2); NEUT % 85.5 % (42.8-82.8); PLATELET COUNT 172 K/MM3 (134-434); RBC 4.03 M/mm3 (3.60-5.2); WHITE BLOOD COUNT 6.7 K/mm3 (4.0-10.0)
[2020-03-22 09:03] LABS: BLOOD UREA NITROGEN 23.8 mg/dL (7-18); CALCIUM 8.1 mg/dL (8.5-10.1); CREATININE 0.9 mg/dL (0.55-1.3); POTASSIUM 3.7 mmol/L (3.5-5.1); TOT PROT 5.3 g/dl (6.4-8.2)
[2020-03-22] MEDS: ENOXAPARIN NA (PORCINE) 40 MG/0.4 ML DISP.SYRIN SQ SCH (12:04)
[2020-03-22 12:59] LABS: ANISOCYTOSIS 0; MACROCYTOSIS 0; PLATELET ESTIMATE NORMAL
[2020-03-22] MEDS: ONDANSETRON 4 MG/2 ML VIAL IVPB PRN ×2 (14:42→22:57)
[2020-03-23] MEDS ORDERED: DEXTROSE 5%-WATER 100 ML IVPB ONE ×3 (00:40→18:41)
[2020-03-23] MEDS ORDERED: PIPERACILLIN/TAZOBACTAM 4.5 GM VIAL IVPB ONE ×3 (00:40→18:41)
[2020-03-23] MEDS: PIPERACILLIN/TAZOB 4.5 GM 4.5 GM in DEXTROSE 5%-WATER 100 ML IVPB SCH ×3 (01:29→19:30)
[2020-03-23] MEDS: morphine SULFATE 4 MG/ML VIAL IVPUSH PRN ×2 (02:42→06:55)
[2020-03-23] MEDS: SODIUM CHLORIDE 1,000 ML IV SCH ×3 (04:49→18:45)
[2020-03-23] MEDS: ENOXAPARIN NA (PORCINE) 40 MG/0.4 ML DISP.SYRIN SQ SCH (11:38)
[2020-03-23] MEDS ORDERED: PROPOFOL 20 ML ONE (14:31)
[2020-03-23] MEDS ORDERED: SUCCINYLCHOLINE CHLORIDE 200 MG/10 ML SYRINGE ONE (14:31)
[2020-03-23] MEDS ORDERED: fentaNYL CITRATE 250 MCG/5 ML VIAL ONE ×3 (14:31→17:21)
[2020-03-23] MEDS ORDERED: ROCURONIUM BROMIDE 50 MG/5 ML SYRINGE ONE ×2 (14:31→16:19)
[2020-03-23] MEDS ORDERED: ceFAZolin SODIUM 1 GM VIAL IVPB ONE (14:50)
[2020-03-23] MEDS ORDERED: KETOROLAC TROMETHAMINE 15 MG/ML VIAL IVPUSH PRN ×2 (16:58→17:38)
[2020-03-23] MEDS ORDERED: METOPROLOL TARTRATE 5 MG/5 ML VIAL ONE (17:00)
[2020-03-23] MEDS ORDERED: NEOSTIGMINE METHYLSULFATE 0.5 MG/1 ML - 10 ML MDV ONE (17:17)
[2020-03-23] MEDS ORDERED: GLYCOPYRROLATE 0.2 MG/1 ML VIAL ONE ×2 (17:18)
[2020-03-23] MEDS ORDERED: ACETAMINOPHEN 1000 MG/100 ML VIAL (NON FORMULARY) IVPB PRN (17:38)
[2020-03-23] MEDS ORDERED: ONDANSETRON 4 MG/2 ML VIAL IVPB PRN (17:38)
[2020-03-23] MEDS ORDERED: PROMETHAZINE HCL 25 MG/1 ML VIAL IVPUSH PRN (17:43)
[2020-03-23] MEDS ORDERED: ONDANSETRON 4 MG/2 ML VIAL IVPUSH PRN (17:43)
[2020-03-23] MEDS ORDERED: PROMETHAZINE HCL 25 MG/1 ML VIAL IVPB PRN (17:44)
[2020-03-23] MEDS ORDERED: DEXAMETHASONE SOD PHOSPHATE 4 MG/1 ML VIAL IVPUSH PRN (17:44)
[2020-03-23] MEDS ORDERED: HYDROmorphone *PCA* 10MG/50ML DISP.SYRIN PCA SCH (17:45)
[2020-03-23] MEDS ORDERED: HYDROmorphone *PCA* 10MG/50ML DISP.SYRIN ONE (18:38)
[2020-03-23] MEDS ORDERED: ACETAMINOPHEN INJECTION 100 ML IVPB ONE (19:14)
[2020-03-24] MEDS ORDERED: DEXTROSE 5%-WATER 100 ML IVPB ONE ×3 (01:01→17:05)
[2020-03-24] MEDS ORDERED: PIPERACILLIN/TAZOBACTAM 4.5 GM VIAL IVPB ONE ×3 (01:01→17:05)
[2020-03-24] MEDS: PIPERACILLIN/TAZOB 4.5 GM 4.5 GM in DEXTROSE 5%-WATER 100 ML IVPB SCH ×3 (01:09→18:03)
[2020-03-24] MEDS: SODIUM CHLORIDE 1,000 ML IV SCH (02:07)
[2020-03-24 08:13] LABS: BASO % 0.2 % (0-2.0); EOS % 0.1 % (0-4.5); HEMOGLOBIN 11.6 GM/dL (10.7-15.3); LYMPH % 8.3 % (8-40); MCH 30.7 pg (25.7-33.7); MCHC 33.1 g/dl (32.0-36.0); MEAN CELL VOLUME 92.8 fl (80-96); MEAN PLT VOLUME 8.7 fl (7.5-11.1); NEUT % 83.4 % (42.8-82.8); PLATELET COUNT 154 K/MM3 (134-434); RBC 3.77 M/mm3 (3.60-5.2); RDW 15.3 % (11.6-15.6)
[2020-03-24 08:14] LABS: ALBUMIN 1.3 g/dl (3.4-5.0); BLOOD UREA NITROGEN 12.5 mg/dL (7-18); CALCIUM 7.3 mg/dL (8.5-10.1); CREATININE 0.6 mg/dL (0.55-1.3); POTASSIUM 3.4 mmol/L (3.5-5.1); TOT PROT 3.9 g/dl (6.4-8.2)
[2020-03-24] MEDS: ENOXAPARIN NA (PORCINE) 40 MG/0.4 ML DISP.SYRIN SQ SCH (09:02)
[2020-03-24 09:08] LABS: MAGNESIUM 1.6 mg/dL (1.8-2.4)
[2020-03-24 10:28] LABS: ANISOCYTOSIS 1+; MACROCYTOSIS 1+; PLATELET ESTIMATE DECREASED
[2020-03-24] MEDS: D5-1/2NS+20 MEQ KCL - 20 MEQ/1,000 ML INFUS.BAG IV SCH (10:52)
[2020-03-24] MEDS: KCL 10 MEQ IVPB 10 MEQ/100 ML INFUS.BAG IVPB SCH ×2 (10:53→12:08)
[2020-03-24] MEDS: SIMETHICONE 80 MG TAB.CHEW (FP) PO PRN (14:58)
[2020-03-24] MEDS: ONDANSETRON 4 MG/2 ML VIAL IVPUSH PRN ×2 (15:27→20:51)
[2020-03-24] MEDS ORDERED: oxyCODONE HCL 5 MG TABLET PO PRN ×2 (15:31)
[2020-03-24] MEDS ORDERED: PCA PUMP NR ONE (16:14)
[2020-03-24] MEDS: ACETAMINOPHEN 1000 MG/100 ML VIAL (NON FORMULARY) IVPB SCH ×2 (17:17→23:45)
[2020-03-24] MEDS: morphine SULFATE 4 MG/ML VIAL IVPUSH PRN (20:49)
[2020-03-24] MEDS: KETOROLAC TROMETHAMINE 15 MG/ML VIAL IVPUSH SCH (21:00)
[2020-03-25] MEDS: morphine SULFATE 4 MG/ML VIAL IVPUSH PRN (00:57)
[2020-03-25] MEDS: KETOROLAC TROMETHAMINE 15 MG/ML VIAL IVPUSH SCH ×4 (03:30→20:32)
[2020-03-25] MEDS ORDERED: METOCLOPRAMIDE HCL INJECTION 10 MG/2 ML VIAL IVPUSH ONE (05:36)
[2020-03-25] MEDS ORDERED: METOCLOPRAMIDE HCL INJECTION 10 MG/2 ML VIAL IVPB ONE (05:36)
[2020-03-25] MEDS ORDERED: PANTOPRAZOLE SODIUM 40 MG VIAL IVPB ONE (05:41)
[2020-03-25] MEDS: ACETAMINOPHEN 1000 MG/100 ML VIAL (NON FORMULARY) IVPB SCH ×5 (06:10→22:40)
[2020-03-25 08:04] LABS: ALBUMIN 1.5 g/dl (3.4-5.0); BILIRUBIN,TOTAL 1.5 mg/dL (0.2-1); BLOOD UREA NITROGEN 11.3 mg/dL (7-18); CALCIUM 7.9 mg/dL (8.5-10.1); CREATININE 0.5 mg/dL (0.55-1.3); POTASSIUM 3.5 mmol/L (3.5-5.1); TOT PROT 4.5 g/dl (6.4-8.2)
[2020-03-25 08:10] LABS: BASO % 0.2 % (0-2.0); EOS % 0.2 % (0-4.5); HEMATOCRIT 31.1 % (32.4-45.2); HEMOGLOBIN 10.6 GM/dL (10.7-15.3); LYMPH % 9.3 % (8-40); MCH 31.4 pg (25.7-33.7); MEAN CELL VOLUME 92.1 fl (80-96); MEAN PLT VOLUME 9.3 fl (7.5-11.1); MONO % 8.7 % (3.8-10.2); NEUT % 81.6 % (42.8-82.8); PLATELET COUNT 195 K/MM3 (134-434); RBC 3.38 M/mm3 (3.60-5.2); RDW 15.3 % (11.6-15.6); WHITE BLOOD COUNT 15.6 K/mm3 (4.0-10.0)
[2020-03-25] MEDS ORDERED: oxyCODONE HCL 5 MG TABLET PO PRN ×2 (09:00)
[2020-03-25 09:46] LABS: ANISOCYTOSIS 1+; MACROCYTOSIS 0; PLATELET ESTIMATE NORMAL
[2020-03-25] MEDS: ENOXAPARIN NA (PORCINE) 40 MG/0.4 ML DISP.SYRIN SQ SCH (11:09)
[2020-03-25] MEDS: D5-1/2NS+20 MEQ KCL - 20 MEQ/1,000 ML INFUS.BAG IV SCH (15:17)
[2020-03-26] MEDS: morphine SULFATE 4 MG/ML VIAL IVPUSH PRN (02:34)
[2020-03-26] MEDS: ONDANSETRON 4 MG/2 ML VIAL IVPUSH PRN (02:44)
[2020-03-26] MEDS: D5-1/2NS+20 MEQ KCL - 20 MEQ/1,000 ML INFUS.BAG IV SCH (06:35)
[2020-03-26] MEDS: SIMETHICONE 80 MG TAB.CHEW (FP) PO PRN (08:44)
[2020-03-26 09:12] LABS: HEMATOCRIT 30.5 % (32.4-45.2); HEMOGLOBIN 10.2 GM/dL (10.7-15.3); MCH 31.1 pg (25.7-33.7); MCHC 33.5 g/dl (32.0-36.0); MEAN CELL VOLUME 92.8 fl (80-96); MEAN PLT VOLUME 8.7 fl (7.5-11.1); PLATELET COUNT 286 K/MM3 (134-434); RBC 3.29 M/mm3 (3.60-5.2); RDW 14.9 % (11.6-15.6); WHITE BLOOD COUNT 17.3 K/mm3 (4.0-10.0)
[2020-03-26 10:01] LABS: ALBUMIN 1.5 g/dl (3.4-5.0); BILIRUBIN,TOTAL 1.2 mg/dL (0.2-1); BLOOD UREA NITROGEN 19.9 mg/dL (7-18); CALCIUM 7.7 mg/dL (8.5-10.1); CREATININE 0.6 mg/dL (0.55-1.3); POTASSIUM 3.6 mmol/L (3.5-5.1); TOT PROT 4.7 g/dl (6.4-8.2)
[2020-03-26] MEDS ORDERED: ACETAMINOPHEN 500 MG TABLET (FP) PO PRN (10:27)
[2020-03-26] MEDS ORDERED: DEXTROSE 5%-WATER - 50 ML IVPB ONE ×2 (10:28→17:33)
[2020-03-26] MEDS ORDERED: PIPERACILLIN/TAZOBACTAM 3.375 GM VIAL IVPB ONE ×2 (10:28→17:33)
[2020-03-26] MEDS: PIPERACILLIN/TAZOB 3.375 GM 3.375 GM in DEXTROSE 5%-WATER - 50 ML IVPB SCH ×2 (11:12→17:49)
[2020-03-26] MEDS: ENOXAPARIN NA (PORCINE) 40 MG/0.4 ML DISP.SYRIN SQ SCH (11:13)
[2020-03-26] MEDS ORDERED: KETOROLAC TROMETHAMINE 15 MG/ML VIAL IVPUSH PRN (11:40)
[2020-03-27] MEDS ORDERED: PIPERACILLIN/TAZOBACTAM 3.375 GM VIAL IVPB ONE ×3 (00:54→17:21)
[2020-03-27] MEDS ORDERED: DEXTROSE 5%-WATER - 50 ML IVPB ONE ×3 (00:54→17:21)
[2020-03-27] MEDS: ACETAMINOPHEN 500 MG TABLET (FP) PO PRN ×4 (00:57→21:54)
[2020-03-27] MEDS: PIPERACILLIN/TAZOB 3.375 GM 3.375 GM in DEXTROSE 5%-WATER - 50 ML IVPB SCH ×3 (01:00→17:25)
[2020-03-27] MEDS: D5-1/2NS+20 MEQ KCL - 20 MEQ/1,000 ML INFUS.BAG IV SCH ×2 (01:03→12:35)
[2020-03-27 09:23] LABS: BASO % 0.1 % (0-2.0); EOS % 0.3 % (0-4.5); HEMATOCRIT 29.6 % (32.4-45.2); HEMOGLOBIN 10.1 GM/dL (10.7-15.3); MCH 31.9 pg (25.7-33.7); MCHC 34.1 g/dl (32.0-36.0); MEAN CELL VOLUME 93.6 fl (80-96); MEAN PLT VOLUME 8.4 fl (7.5-11.1); MONO % 6.5 % (3.8-10.2); NEUT % 84.1 % (42.8-82.8); PLATELET COUNT 368 K/MM3 (134-434); RBC 3.16 M/mm3 (3.60-5.2); RDW 15.1 % (11.6-15.6); WHITE BLOOD COUNT 15.6 K/mm3 (4.0-10.0)
[2020-03-27] MEDS: ENOXAPARIN NA (PORCINE) 40 MG/0.4 ML DISP.SYRIN SQ SCH (10:08)
[2020-03-27 10:45] LABS: ANISOCYTOSIS 1+; MACROCYTOSIS 0; PLATELET ESTIMATE NORMAL
[2020-03-27] MEDS ORDERED: KETOROLAC TROMETHAMINE 30 MG/1 ML VIAL IVPUSH PRN (15:28)
[2020-03-27] MEDS ORDERED: KETOROLAC TROMETHAMINE 15 MG/ML VIAL IVPUSH ONE (15:30)
[2020-03-27] MEDS: SIMETHICONE 80 MG TAB.CHEW (FP) PO PRN (17:57)
[2020-03-27] MEDS ORDERED: MELATONIN 5 MG TABLETS PO ONE (20:10)
[2020-03-27] MEDS ORDERED: traMADol HCL 50 MG TABLET PO PRN (21:57)
[2020-03-28] MEDS ORDERED: DEXTROSE 5%-WATER - 50 ML IVPB ONE ×2 (01:06→18:00)
[2020-03-28] MEDS ORDERED: PIPERACILLIN/TAZOBACTAM 3.375 GM VIAL IVPB ONE ×2 (01:06→18:00)
[2020-03-28] MEDS: PIPERACILLIN/TAZOB 3.375 GM 3.375 GM in DEXTROSE 5%-WATER - 50 ML IVPB SCH ×3 (02:25→18:09)
[2020-03-28] MEDS: KETOROLAC TROMETHAMINE 30 MG/1 ML VIAL IVPUSH PRN ×2 (03:22→20:14)
[2020-03-28] MEDS ORDERED: oxyCODONE HCL 5 MG TABLET PO PRN (08:00)
[2020-03-28 09:09] LABS: BASO % 0.2 % (0-2.0); EOS % 0.2 % (0-4.5); HEMOGLOBIN 9.2 GM/dL (10.7-15.3); LYMPH % 8.3 % (8-40); MCH 31.6 pg (25.7-33.7); MEAN CELL VOLUME 92.8 fl (80-96); MONO % 7.1 % (3.8-10.2); NEUT % 84.2 % (42.8-82.8); PLATELET COUNT 460 K/MM3 (134-434); RBC 2.91 M/mm3 (3.60-5.2); RDW 15.1 % (11.6-15.6); WHITE BLOOD COUNT 17.2 K/mm3 (4.0-10.0)
[2020-03-28 09:58] LABS: ALBUMIN 1.4 g/dl (3.4-5.0); BLOOD UREA NITROGEN 8.4 mg/dL (7-18); CALCIUM 7.8 mg/dL (8.5-10.1); POTASSIUM 3.8 mmol/L (3.5-5.1)
[2020-03-28 10:02] LABS: BILIRUBIN,TOTAL 0.7 mg/dL (0.2-1); CREATININE 0.4 mg/dL (0.55-1.3); TOT PROT 5.3 g/dl (6.4-8.2)
[2020-03-28] MEDS: oxyCODONE HCL 5 MG TABLET PO PRN ×3 (10:43→21:57)
[2020-03-28] MEDS: ENOXAPARIN NA (PORCINE) 40 MG/0.4 ML DISP.SYRIN SQ SCH (10:43)
[2020-03-28 11:27] LABS: PLATELET ESTIMATE ADEQUATE
[2020-03-29] MEDS ORDERED: DEXTROSE 5%-WATER - 50 ML IVPB ONE ×3 (01:38→17:17)
[2020-03-29] MEDS ORDERED: PIPERACILLIN/TAZOBACTAM 3.375 GM VIAL IVPB ONE ×3 (01:38→17:17)
[2020-03-29] MEDS: PIPERACILLIN/TAZOB 3.375 GM 3.375 GM in DEXTROSE 5%-WATER - 50 ML IVPB SCH ×3 (01:45→17:29)
[2020-03-29] MEDS: oxyCODONE HCL 5 MG TABLET PO PRN ×6 (02:23→23:47)
[2020-03-29 08:37] LABS: BASO % 0.2 % (0-2.0); EOS % 0.2 % (0-4.5); HEMATOCRIT 26.4 % (32.4-45.2); HEMOGLOBIN 8.9 GM/dL (10.7-15.3); LYMPH % 8.4 % (8-40); MCH 30.8 pg (25.7-33.7); MCHC 33.7 g/dl (32.0-36.0); MEAN CELL VOLUME 91.6 fl (80-96); MEAN PLT VOLUME 7.8 fl (7.5-11.1); MONO % 7.9 % (3.8-10.2); NEUT % 83.3 % (42.8-82.8); PLATELET COUNT 672 K/MM3 (134-434); RBC 2.89 M/mm3 (3.60-5.2)
[2020-03-29 08:59] LABS: ALBUMIN 1.5 g/dl (3.4-5.0); BILIRUBIN,TOTAL 0.8 mg/dL (0.2-1); BLOOD UREA NITROGEN 5.4 mg/dL (7-18); CALCIUM 7.8 mg/dL (8.5-10.1); CREATININE 0.3 mg/dL (0.55-1.3); MAGNESIUM 1.6 mg/dL (1.8-2.4); POTASSIUM 3.9 mmol/L (3.5-5.1)
[2020-03-29] MEDS ORDERED: MAGNESIUM SULF 50% (8.12 MEQ/2 ML-1 GM VIAL) IVPB ONE (09:06)
[2020-03-29] MEDS ORDERED: MAGNESIUM 1GM/D5W - 1 GM/100 ML IVPB IVPB ONE (09:15)
[2020-03-29] MEDS ORDERED: PT OWN MED DRAWER 7, Y5N ONE (09:18)
[2020-03-29] MEDS: ENOXAPARIN NA (PORCINE) 40 MG/0.4 ML DISP.SYRIN SQ SCH (09:40)
[2020-03-29] MEDS: ACETAMINOPHEN 500 MG TABLET (FP) PO PRN (16:43)
[2020-03-29] MEDS: SIMETHICONE 80 MG TAB.CHEW (FP) PO PRN (23:40)
[2020-03-30] MEDS ORDERED: PIPERACILLIN/TAZOBACTAM 3.375 GM VIAL IVPB ONE ×3 (01:56→15:53)
[2020-03-30] MEDS ORDERED: DEXTROSE 5%-WATER - 50 ML IVPB ONE ×3 (01:56→15:53)
[2020-03-30] MEDS: PIPERACILLIN/TAZOB 3.375 GM 3.375 GM in DEXTROSE 5%-WATER - 50 ML IVPB SCH ×3 (02:05→17:20)
[2020-03-30] MEDS: oxyCODONE HCL 5 MG TABLET PO PRN ×5 (04:40→21:06)
[2020-03-30] MEDS: KETOROLAC TROMETHAMINE 30 MG/1 ML VIAL IVPUSH PRN (08:07)
[2020-03-30 09:08] LABS: BASO % 0.2 % (0-2.0); EOS % 0.2 % (0-4.5); HEMATOCRIT 25.7 % (32.4-45.2); HEMOGLOBIN 8.6 GM/dL (10.7-15.3); LYMPH % 9.9 % (8-40); MCH 30.6 pg (25.7-33.7); MCHC 33.4 g/dl (32.0-36.0); MEAN CELL VOLUME 91.8 fl (80-96); MEAN PLT VOLUME 7.7 fl (7.5-11.1); MONO % 9.7 % (3.8-10.2); PLATELET COUNT 790 K/MM3 (134-434); RBC 2.79 M/mm3 (3.60-5.2); RDW 14.7 % (11.6-15.6); WHITE BLOOD COUNT 15.6 K/mm3 (4.0-10.0)
[2020-03-30 09:33] LABS: ALBUMIN 1.5 g/dl (3.4-5.0); BLOOD UREA NITROGEN 3.2 mg/dL (7-18); POTASSIUM 4.5 mmol/L (3.5-5.1)
[2020-03-30 09:46] LABS: BILIRUBIN,TOTAL 0.5 mg/dL (0.2-1); CREATININE 0.3 mg/dL (0.55-1.3); MAGNESIUM 1.7 mg/dL (1.8-2.4); TOT PROT 5.3 g/dl (6.4-8.2)
[2020-03-30] MEDS: ENOXAPARIN NA (PORCINE) 40 MG/0.4 ML DISP.SYRIN SQ SCH (11:21)
[2020-03-30] MEDS: METOPROLOL TARTRATE 25 MG TABLET (FP) PO SCH ×2 (11:21→21:07)
[2020-03-30] MEDS: SIMETHICONE 80 MG TAB.CHEW (FP) PO PRN ×2 (11:21→17:20)
[2020-03-31] MEDS ORDERED: PIPERACILLIN/TAZOBACTAM 3.375 GM VIAL IVPB ONE ×2 (00:12→08:51)
[2020-03-31] MEDS ORDERED: DEXTROSE 5%-WATER - 50 ML IVPB ONE ×2 (00:12→08:51)
[2020-03-31] MEDS: PIPERACILLIN/TAZOB 3.375 GM 3.375 GM in DEXTROSE 5%-WATER - 50 ML IVPB SCH ×3 (01:16→19:02)
[2020-03-31] MEDS: oxyCODONE HCL 5 MG TABLET PO PRN ×2 (01:26→08:53)
[2020-03-31] MEDS: METOPROLOL TARTRATE 25 MG TABLET (FP) PO SCH ×2 (09:35→21:43)
[2020-03-31] MEDS: ENOXAPARIN NA (PORCINE) 40 MG/0.4 ML DISP.SYRIN SQ SCH (09:36)
[2020-03-31 09:50] LABS: BASO % 0.4 % (0-2.0); EOS % 0.2 % (0-4.5); HEMATOCRIT 25.5 % (32.4-45.2); HEMOGLOBIN 8.4 GM/dL (10.7-15.3); LYMPH % 11.9 % (8-40); MCH 30.4 pg (25.7-33.7); MCHC 33.1 g/dl (32.0-36.0); MEAN PLT VOLUME 7.4 fl (7.5-11.1); MONO % 11.5 % (3.8-10.2); PLATELET COUNT 995 K/MM3 (134-434); RBC 2.77 M/mm3 (3.60-5.2); RDW 15.1 % (11.6-15.6); WHITE BLOOD COUNT 14.9 K/mm3 (4.0-10.0)
[2020-03-31 10:21] LABS: ALBUMIN 1.6 g/dl (3.4-5.0); BILIRUBIN,TOTAL 0.4 mg/dL (0.2-1); BLOOD UREA NITROGEN 3.4 mg/dL (7-18); CALCIUM 8.6 mg/dL (8.5-10.1); CREATININE 0.5 mg/dL (0.55-1.3); MAGNESIUM 1.7 mg/dL (1.8-2.4); POTASSIUM 4.8 mmol/L (3.5-5.1); TOT PROT 5.6 g/dl (6.4-8.2)
[2020-03-31] MEDS: SIMETHICONE 80 MG TAB.CHEW (FP) PO PRN (13:41)
[2020-03-31] MEDS: KETOROLAC TROMETHAMINE 30 MG/1 ML VIAL IVPUSH PRN ×2 (13:41→22:00)
[2020-03-31] MEDS: ACETAMINOPHEN 500 MG TABLET (FP) PO PRN (13:46)
[2020-04-01] MEDS ORDERED: PIPERACILLIN/TAZOBACTAM 3.375 GM VIAL IVPB ONE ×2 (00:53→10:34)
[2020-04-01] MEDS ORDERED: DEXTROSE 5%-WATER - 50 ML IVPB ONE ×2 (00:53→10:34)
[2020-04-01] MEDS: PIPERACILLIN/TAZOB 3.375 GM 3.375 GM in DEXTROSE 5%-WATER - 50 ML IVPB SCH ×2 (01:18→10:36)
[2020-04-01] MEDS: KETOROLAC TROMETHAMINE 30 MG/1 ML VIAL IVPUSH PRN ×2 (05:19→11:36)
[2020-04-01 08:49] LABS: BASO % 0.6 % (0-2.0); EOS % 0.7 % (0-4.5); HEMOGLOBIN 8.5 GM/dL (10.7-15.3); LYMPH % 10.6 % (8-40); MCH 31.6 pg (25.7-33.7); MCHC 34.2 g/dl (32.0-36.0); MEAN CELL VOLUME 92.5 fl (80-96); MEAN PLT VOLUME 7.5 fl (7.5-11.1); MONO % 10.2 % (3.8-10.2); NEUT % 77.9 % (42.8-82.8); PLATELET COUNT 1083 K/MM3 (134-434); RDW 14.8 % (11.6-15.6); WHITE BLOOD COUNT 12.9 K/mm3 (4.0-10.0)
[2020-04-01 09:13] LABS: ALBUMIN 1.6 g/dl (3.4-5.0); BILIRUBIN,TOTAL 0.4 mg/dL (0.2-1); BLOOD UREA NITROGEN 4.9 mg/dL (7-18); CALCIUM 8.7 mg/dL (8.5-10.1); CREATININE 0.4 mg/dL (0.55-1.3); POTASSIUM 4.7 mmol/L (3.5-5.1); TOT PROT 5.4 g/dl (6.4-8.2)
[2020-04-01] MEDS: METOPROLOL TARTRATE 25 MG TABLET (FP) PO SCH ×2 (10:36→22:20)
[2020-04-01] MEDS: ENOXAPARIN NA (PORCINE) 40 MG/0.4 ML DISP.SYRIN SQ SCH (10:37)
[2020-04-01] MEDS: oxyCODONE HCL 5 MG TABLET PO PRN ×2 (14:21→22:20)
[2020-04-01] MEDS: FERROUS SO4 325 MG TABLET (FP) PO SCH (17:57)
[2020-04-01] MEDS: ACETAMINOPHEN 500 MG TABLET (FP) PO PRN (17:57)
[2020-04-02] MEDS: oxyCODONE HCL 5 MG TABLET PO PRN ×4 (04:43→23:24)
[2020-04-02] MEDS: FERROUS SO4 325 MG TABLET (FP) PO SCH ×2 (08:24→17:16)
[2020-04-02 08:44] LABS: BASO % 0.5 % (0-2.0); EOS % 0.4 % (0-4.5); HEMATOCRIT 24.2 % (32.4-45.2); HEMOGLOBIN 8.2 GM/dL (10.7-15.3); MCH 31.7 pg (25.7-33.7); MCHC 34.1 g/dl (32.0-36.0); MEAN PLT VOLUME 7.3 fl (7.5-11.1); MONO % 9.9 % (3.8-10.2); NEUT % 78.2 % (42.8-82.8); RDW 14.8 % (11.6-15.6); WHITE BLOOD COUNT 14.6 K/mm3 (4.0-10.0)
[2020-04-02 08:45] LABS: PLATELET COUNT 1140 K/MM3 (134-434)
[2020-04-02 08:47] LABS: ALBUMIN 1.8 g/dl (3.4-5.0); BILIRUBIN,TOTAL 0.4 mg/dL (0.2-1); BLOOD UREA NITROGEN 4.4 mg/dL (7-18); CALCIUM 8.1 mg/dL (8.5-10.1); CREATININE 0.4 mg/dL (0.55-1.3); POTASSIUM 4.7 mmol/L (3.5-5.1); TOT PROT 5.7 g/dl (6.4-8.2)
[2020-04-02] MEDS: ENOXAPARIN NA (PORCINE) 40 MG/0.4 ML DISP.SYRIN SQ SCH (10:24)
[2020-04-02] MEDS: METOPROLOL TARTRATE 25 MG TABLET (FP) PO SCH ×2 (10:24→21:16)
[2020-04-02] MEDS ORDERED: DEXTROSE 5%-WATER 100 ML IVPB ONE ×2 (13:36→17:43)
[2020-04-02] MEDS ORDERED: PIPERACILLIN/TAZOBACTAM 4.5 GM VIAL IVPB ONE ×2 (13:36→17:43)
[2020-04-02] MEDS: PIPERACILLIN/TAZOB 4.5 GM 4.5 GM in DEXTROSE 5%-WATER 100 ML IVPB SCH ×2 (13:39→17:47)
[2020-04-02] MEDS: SIMETHICONE 80 MG TAB.CHEW (FP) PO PRN (21:16)
[2020-04-03] MEDS ORDERED: PIPERACILLIN/TAZOBACTAM 4.5 GM VIAL IVPB ONE ×3 (00:45→16:54)
[2020-04-03] MEDS ORDERED: DEXTROSE 5%-WATER 100 ML IVPB ONE ×3 (00:45→16:54)
[2020-04-03] MEDS: PIPERACILLIN/TAZOB 4.5 GM 4.5 GM in DEXTROSE 5%-WATER 100 ML IVPB SCH ×3 (01:01→17:09)
[2020-04-03] MEDS: FERROUS SO4 325 MG TABLET (FP) PO SCH ×2 (08:23→17:09)
[2020-04-03] MEDS: oxyCODONE HCL 5 MG TABLET PO PRN ×2 (09:22→21:16)
[2020-04-03] MEDS: METOPROLOL TARTRATE 25 MG TABLET (FP) PO SCH ×2 (09:23→21:16)
[2020-04-03] MEDS: SIMETHICONE 80 MG TAB.CHEW (FP) PO PRN (09:23)
[2020-04-03] MEDS: ENOXAPARIN NA (PORCINE) 40 MG/0.4 ML DISP.SYRIN SQ SCH (09:24)
[2020-04-03 16:35] LABS: BASO % 0.9 % (0-2.0); EOS % 0.3 % (0-4.5); HEMATOCRIT 26.5 % (32.4-45.2); HEMOGLOBIN 8.8 GM/dL (10.7-15.3); LYMPH % 12.9 % (8-40); MCHC 33.2 g/dl (32.0-36.0); MEAN CELL VOLUME 93.2 fl (80-96); MEAN PLT VOLUME 7.2 fl (7.5-11.1); NEUT % 77.9 % (42.8-82.8); RBC 2.85 M/mm3 (3.60-5.2); RDW 15.6 % (11.6-15.6); WHITE BLOOD COUNT 13.5 K/mm3 (4.0-10.0)
[2020-04-03 16:37] LABS: PLATELET COUNT 1253 K/MM3 (134-434)
[2020-04-03] MEDS: ACETAMINOPHEN 500 MG TABLET (FP) PO PRN (17:50)
[2020-04-04] MEDS ORDERED: DEXTROSE 5%-WATER 100 ML IVPB ONE ×3 (01:34→16:54)
[2020-04-04] MEDS ORDERED: PIPERACILLIN/TAZOBACTAM 4.5 GM VIAL IVPB ONE ×3 (01:34→16:54)
[2020-04-04] MEDS: PIPERACILLIN/TAZOB 4.5 GM 4.5 GM in DEXTROSE 5%-WATER 100 ML IVPB SCH ×3 (02:02→17:09)
[2020-04-04] MEDS: oxyCODONE HCL 5 MG TABLET PO PRN ×2 (06:21→13:04)
[2020-04-04] MEDS: FERROUS SO4 325 MG TABLET (FP) PO SCH ×2 (08:15→17:09)
[2020-04-04 09:15] LABS: ALBUMIN 1.9 g/dl (3.4-5.0); BILIRUBIN,TOTAL 0.9 mg/dL (0.2-1); BLOOD UREA NITROGEN 5.4 mg/dL (7-18); CALCIUM 9.1 mg/dL (8.5-10.1); CREATININE 0.5 mg/dL (0.55-1.3); POTASSIUM 5.2 mmol/L (3.5-5.1); TOT PROT 6.2 g/dl (6.4-8.2)
[2020-04-04 09:31] LABS: BASO % 0.6 % (0-2.0); EOS % 0.3 % (0-4.5); HEMATOCRIT 25.1 % (32.4-45.2); HEMOGLOBIN 8.3 GM/dL (10.7-15.3); LYMPH % 11.2 % (8-40); MCH 30.3 pg (25.7-33.7); MEAN CELL VOLUME 91.8 fl (80-96); MEAN PLT VOLUME 6.9 fl (7.5-11.1); MONO % 8.7 % (3.8-10.2); NEUT % 79.2 % (42.8-82.8); RBC 2.73 M/mm3 (3.60-5.2); RDW 15.7 % (11.6-15.6); WHITE BLOOD COUNT 14.4 K/mm3 (4.0-10.0)
[2020-04-04 09:40] LABS: PLATELET COUNT 1228 K/MM3 (134-434)
[2020-04-04] MEDS: METOPROLOL TARTRATE 25 MG TABLET (FP) PO SCH ×2 (10:15→21:24)
[2020-04-04] MEDS: SIMETHICONE 80 MG TAB.CHEW (FP) PO PRN (10:15)
[2020-04-04] MEDS: ENOXAPARIN NA (PORCINE) 40 MG/0.4 ML DISP.SYRIN SQ SCH (10:15)
[2020-04-04] MEDS ORDERED: ACETAMINOPHEN 325 MG TABLET (FP) PO ONE (21:15)
[2020-04-04] MEDS ORDERED: oxyCODONE HCL 5 MG TABLET PO ONE (21:15)
[2020-04-05] MEDS ORDERED: PIPERACILLIN/TAZOBACTAM 4.5 GM VIAL IVPB ONE ×3 (01:48→16:23)
[2020-04-05] MEDS ORDERED: DEXTROSE 5%-WATER 100 ML IVPB ONE ×3 (01:48→16:23)
[2020-04-05] MEDS: PIPERACILLIN/TAZOB 4.5 GM 4.5 GM in DEXTROSE 5%-WATER 100 ML IVPB SCH ×3 (02:13→17:00)
[2020-04-05] MEDS: ACETAMINOPHEN 500 MG TABLET (FP) PO PRN (07:39)
[2020-04-05 07:54] LABS: BASO % 1.2 % (0-2.0); EOS % 0.4 % (0-4.5); HEMATOCRIT 25.4 % (32.4-45.2); HEMOGLOBIN 8.2 GM/dL (10.7-15.3); LYMPH % 12.8 % (8-40); MCH 29.4 pg (25.7-33.7); MCHC 32.3 g/dl (32.0-36.0); MEAN CELL VOLUME 90.8 fl (80-96); MEAN PLT VOLUME 6.6 fl (7.5-11.1); MONO % 9.6 % (3.8-10.2)
[2020-04-05 08:28] LABS: PLATELET COUNT 1216 K/MM3 (134-434)
[2020-04-05] MEDS: FERROUS SO4 325 MG TABLET (FP) PO SCH ×2 (08:31→16:59)
[2020-04-05 08:37] LABS: ALBUMIN 1.9 g/dl (3.4-5.0); BILIRUBIN,TOTAL 0.4 mg/dL (0.2-1); BLOOD UREA NITROGEN 4.2 mg/dL (7-18); CALCIUM 9.2 mg/dL (8.5-10.1); CREATININE 0.4 mg/dL (0.55-1.3); POTASSIUM 4.6 mmol/L (3.5-5.1); TOT PROT 6.2 g/dl (6.4-8.2)
[2020-04-05] MEDS: METOPROLOL TARTRATE 25 MG TABLET (FP) PO SCH ×2 (09:42→21:40)
[2020-04-05] MEDS: ENOXAPARIN NA (PORCINE) 40 MG/0.4 ML DISP.SYRIN SQ SCH (09:42)
[2020-04-05] MEDS ORDERED: FERRIC CARBOXYMALTOSE 750 MG in SODIUM CHLORIDE 250 ML IVPB ONE (11:15)
[2020-04-05] MEDS: traMADol HCL 50 MG TABLET PO PRN ×2 (13:06→19:16)
[2020-04-05] MEDS ORDERED: ACETAMINOPHEN 1000 MG/100 ML VIAL (NON FORMULARY) IVPB ONE (21:31)
[2020-04-05 23:59] VITALS: BMI 22.3
[2020-04-06] MEDS ORDERED: DEXTROSE 5%-WATER 100 ML IVPB ONE ×3 (00:40→16:55)
[2020-04-06] MEDS ORDERED: PIPERACILLIN/TAZOBACTAM 4.5 GM VIAL IVPB ONE ×3 (00:40→16:55)
[2020-04-06] MEDS: PIPERACILLIN/TAZOB 4.5 GM 4.5 GM in DEXTROSE 5%-WATER 100 ML IVPB SCH ×3 (01:06→17:05)
[2020-04-06] MEDS ORDERED: ACETAMINOPHEN 1000 MG/100 ML VIAL (NON FORMULARY) IVPB ONE (04:41)
[2020-04-06] MEDS: ENOXAPARIN NA (PORCINE) 40 MG/0.4 ML DISP.SYRIN SQ SCH (09:45)
[2020-04-06] MEDS: METOPROLOL TARTRATE 25 MG TABLET (FP) PO SCH ×2 (09:46→21:32)
[2020-04-06] MEDS: FERROUS SO4 325 MG TABLET (FP) PO SCH ×2 (09:46→17:04)
[2020-04-06] MEDS: ACETAMINOPHEN 500 MG TABLET (FP) PO PRN (11:14)
[2020-04-06] MEDS: traMADol HCL 50 MG TABLET PO PRN (17:54)
[2020-04-06] MEDS ORDERED: oxyCODONE HCL 5 MG TABLET PO ONE (19:37)
[2020-04-07] MEDS ORDERED: PIPERACILLIN/TAZOBACTAM 4.5 GM VIAL IVPB ONE ×2 (00:49→17:10)
[2020-04-07] MEDS ORDERED: DEXTROSE 5%-WATER 100 ML IVPB ONE ×2 (00:50→17:10)
[2020-04-07] MEDS: PIPERACILLIN/TAZOB 4.5 GM 4.5 GM in DEXTROSE 5%-WATER 100 ML IVPB SCH ×3 (01:10→17:15)
[2020-04-07] MEDS: traMADol HCL 50 MG TABLET PO PRN ×2 (04:48→21:11)
[2020-04-07] MEDS: ACETAMINOPHEN 500 MG TABLET (FP) PO PRN (06:21)
[2020-04-07] MEDS: FERROUS SO4 325 MG TABLET (FP) PO SCH ×2 (08:08→17:13)
[2020-04-07] MEDS ORDERED: PROPOFOL 20 ML ONE (09:57)
[2020-04-07] MEDS ORDERED: MIDAZOLAM HCL 2 MG/2 ML SINGLE DOSE VIAL ONE (09:58)
[2020-04-07] MEDS ORDERED: LIDOCAINE HCL/PF 2% SDV 5ML VIAL ONE (10:13)
[2020-04-07] MEDS ORDERED: DEXAMETHASONE SOD PHOSPHATE 4 MG/1 ML VIAL ONE (10:13)
[2020-04-07] MEDS ORDERED: ceFAZolin SODIUM 1 GM VIAL ONE (10:17)
[2020-04-07] MEDS ORDERED: ceFAZolin SODIUM 1 GM VIAL IVPB ONE (10:20)
[2020-04-07] MEDS ORDERED: ONDANSETRON 4 MG/2 ML VIAL IVPUSH PRN (11:27)
[2020-04-07] MEDS ORDERED: SIMETHICONE 80 MG TAB.CHEW (FP) PO PRN (11:27)
[2020-04-07] MEDS ORDERED: PROMETHAZINE HCL 25 MG/1 ML VIAL IVPB PRN (11:27)
[2020-04-07] MEDS: LACTATED RINGERS SOLUTION 1,000 ML IV SCH (12:35)
[2020-04-07] MEDS: METOPROLOL TARTRATE 25 MG TABLET (FP) PO SCH ×3 (12:37→21:11)
[2020-04-07 16:26] LABS: BASO % 0.2 % (0-2.0); EOS % 0.1 % (0-4.5); HEMATOCRIT 27.6 % (32.4-45.2); HEMOGLOBIN 9.1 GM/dL (10.7-15.3); LYMPH % 7.7 % (8-40); MCH 29.8 pg (25.7-33.7); MCHC 33.1 g/dl (32.0-36.0); MEAN CELL VOLUME 90.1 fl (80-96); MEAN PLT VOLUME 6.6 fl (7.5-11.1); MONO % 2.4 % (3.8-10.2); NEUT % 89.6 % (42.8-82.8); PLATELET COUNT 1016 K/MM3 (134-434); RBC 3.06 M/mm3 (3.60-5.2); RDW 16.8 % (11.6-15.6); WHITE BLOOD COUNT 11.6 K/mm3 (4.0-10.0)
[2020-04-07 17:30] LABS: ALBUMIN 2.1 g/dl (3.4-5.0); BILIRUBIN,TOTAL 0.4 mg/dL (0.2-1); BLOOD UREA NITROGEN 6.3 mg/dL (7-18); CALCIUM 9.9 mg/dL (8.5-10.1); CREATININE 0.7 mg/dL (0.55-1.3); POTASSIUM 4.7 mmol/L (3.5-5.1); TOT PROT 7.2 g/dl (6.4-8.2)
[2020-04-07] MEDS ORDERED: METOPROLOL TARTRATE 25 MG TABLET (FP) PO SCH (22:00)
[2020-04-08] MEDS ORDERED: DEXTROSE 5%-WATER 100 ML IVPB ONE ×3 (01:01→17:16)
[2020-04-08] MEDS ORDERED: PIPERACILLIN/TAZOBACTAM 4.5 GM VIAL IVPB ONE ×3 (01:01→17:16)
[2020-04-08] MEDS: LACTATED RINGERS SOLUTION 1,000 ML IV SCH ×3 (01:08→17:20)
[2020-04-08] MEDS: PIPERACILLIN/TAZOB 4.5 GM 4.5 GM in DEXTROSE 5%-WATER 100 ML IVPB SCH ×3 (01:09→17:19)
[2020-04-08] MEDS: traMADol HCL 50 MG TABLET PO PRN ×2 (06:58→18:14)
[2020-04-08 08:10] LABS: BASO % 0.7 % (0-2.0); HEMATOCRIT 25.5 % (32.4-45.2); HEMOGLOBIN 8.6 GM/dL (10.7-15.3); LYMPH % 20.9 % (8-40); MCH 30.4 pg (25.7-33.7); MCHC 33.7 g/dl (32.0-36.0); MEAN CELL VOLUME 90.2 fl (80-96); MEAN PLT VOLUME 6.5 fl (7.5-11.1); NEUT % 68.4 % (42.8-82.8); PLATELET COUNT 881 K/MM3 (134-434); RBC 2.83 M/mm3 (3.60-5.2); RDW 17.1 % (11.6-15.6); WHITE BLOOD COUNT 10.9 K/mm3 (4.0-10.0)
[2020-04-08] MEDS: FERROUS SO4 325 MG TABLET (FP) PO SCH ×2 (08:22→17:20)
[2020-04-08 08:28] LABS: BILIRUBIN,TOTAL 0.6 mg/dL (0.2-1); BLOOD UREA NITROGEN 6.6 mg/dL (7-18); CALCIUM 9.6 mg/dL (8.5-10.1); CREATININE 0.4 mg/dL (0.55-1.3); POTASSIUM 4.2 mmol/L (3.5-5.1); TOT PROT 6.5 g/dl (6.4-8.2)
[2020-04-08] MEDS: ASPIRIN 81 MG CHEWABLE TABLETS PO SCH (09:04)
[2020-04-08] MEDS: METOPROLOL TARTRATE 25 MG TABLET (FP) PO SCH ×2 (09:04→22:22)
[2020-04-08] MEDS: ACETAMINOPHEN 500 MG TABLET (FP) PO PRN (22:21)
[2020-04-09] MEDS ORDERED: DEXTROSE 5%-WATER 100 ML IVPB ONE ×3 (01:37→17:59)
[2020-04-09] MEDS ORDERED: PIPERACILLIN/TAZOBACTAM 4.5 GM VIAL IVPB ONE ×3 (01:37→17:59)
[2020-04-09] MEDS: PIPERACILLIN/TAZOB 4.5 GM 4.5 GM in DEXTROSE 5%-WATER 100 ML IVPB SCH ×3 (01:39→18:41)
[2020-04-09] MEDS: traMADol HCL 50 MG TABLET PO PRN ×3 (01:39→19:07)
[2020-04-09] MEDS: FERROUS SO4 325 MG TABLET (FP) PO SCH ×2 (08:51→18:41)
[2020-04-09] MEDS: ASPIRIN 81 MG CHEWABLE TABLETS PO SCH (10:16)
[2020-04-09] MEDS: LACTATED RINGERS SOLUTION 1,000 ML IV SCH ×2 (10:16→10:18)
[2020-04-09] MEDS: METOPROLOL TARTRATE 25 MG TABLET (FP) PO SCH ×2 (10:17→21:18)
[2020-04-09] MEDS: ACETAMINOPHEN 500 MG TABLET (FP) PO PRN ×2 (12:59→21:22)
[2020-04-09] MEDS: HEPARIN NA (PORCINE) 5,000 UNITS/ML 1ML VIAL SQ SCH (21:15)
[2020-04-10] MEDS ORDERED: DEXTROSE 5%-WATER 100 ML IVPB ONE ×3 (01:02→18:43)
[2020-04-10] MEDS ORDERED: PIPERACILLIN/TAZOBACTAM 4.5 GM VIAL IVPB ONE ×3 (01:02→18:43)
[2020-04-10] MEDS: traMADol HCL 50 MG TABLET PO PRN ×2 (01:06→07:57)
[2020-04-10] MEDS: PIPERACILLIN/TAZOB 4.5 GM 4.5 GM in DEXTROSE 5%-WATER 100 ML IVPB SCH ×3 (01:06→18:50)
[2020-04-10] MEDS: FERROUS SO4 325 MG TABLET (FP) PO SCH ×2 (07:57→18:50)
[2020-04-10 07:59] LABS: HEMATOCRIT 30.3 % (32.4-45.2); MCH 29.2 pg (25.7-33.7); MCHC 32.9 g/dl (32.0-36.0); MEAN CELL VOLUME 88.8 fl (80-96); MEAN PLT VOLUME 6.3 fl (7.5-11.1); PLATELET COUNT 807 K/MM3 (134-434); RBC 3.42 M/mm3 (3.60-5.2); RDW 17.4 % (11.6-15.6); WHITE BLOOD COUNT 11.4 K/mm3 (4.0-10.0)
[2020-04-10] MEDS: LACTATED RINGERS SOLUTION 1,000 ML IV SCH (08:00)
[2020-04-10 08:32] LABS: ALBUMIN 2.4 g/dl (3.4-5.0); BILIRUBIN,TOTAL 0.4 mg/dL (0.2-1); BLOOD UREA NITROGEN 5.4 mg/dL (7-18); CREATININE 0.4 mg/dL (0.55-1.3); POTASSIUM 4.3 mmol/L (3.5-5.1); TOT PROT 7.6 g/dl (6.4-8.2)
[2020-04-10] MEDS: METOPROLOL TARTRATE 25 MG TABLET (FP) PO SCH ×2 (09:28→21:21)
[2020-04-10] MEDS: ASPIRIN 81 MG CHEWABLE TABLETS PO SCH (09:28)
[2020-04-10] MEDS: HEPARIN NA (PORCINE) 5,000 UNITS/ML 1ML VIAL SQ SCH ×2 (09:31→21:21)
[2020-04-10] MEDS ORDERED: traMADol HCL 50 MG TABLET PO ONE (17:08)
[2020-04-11] MEDS: ACETAMINOPHEN 500 MG TABLET (FP) PO PRN (05:12)
[2020-04-11] MEDS: AMOX TR/POT CLAV 875MG/125MG TABLETS (FP) PO SCH ×2 (09:08→17:22)
[2020-04-11] MEDS: ASPIRIN 81 MG CHEWABLE TABLETS PO SCH (09:08)
[2020-04-11] MEDS: METOPROLOL TARTRATE 25 MG TABLET (FP) PO SCH (09:08)
[2020-04-11] MEDS: FERROUS SO4 325 MG TABLET (FP) PO SCH ×2 (09:08→17:21)
[2020-04-11] MEDS: HEPARIN NA (PORCINE) 5,000 UNITS/ML 1ML VIAL SQ SCH (09:08)
[2020-04-11 09:11] LABS: MCH 28.9 pg (25.7-33.7); MCHC 32.2 g/dl (32.0-36.0); MEAN CELL VOLUME 89.7 fl (80-96); MEAN PLT VOLUME 6.6 fl (7.5-11.1); PLATELET COUNT 701 K/MM3 (134-434); RBC 3.46 M/mm3 (3.60-5.2); RDW 17.1 % (11.6-15.6); WHITE BLOOD COUNT 11.6 K/mm3 (4.0-10.0)
[2020-04-11 09:43] LABS: ALBUMIN 2.5 g/dl (3.4-5.0); BILIRUBIN,TOTAL 0.3 mg/dL (0.2-1); BLOOD UREA NITROGEN 6.6 mg/dL (7-18); CREATININE 0.5 mg/dL (0.55-1.3); POTASSIUM 4.1 mmol/L (3.5-5.1); TOT PROT 7.5 g/dl (6.4-8.2)
[2020-04-11 12:26] LABS: ANISOCYTOSIS 1+; MACROCYTOSIS 0; PLATELET ESTIMATE INCREASED
[2020-04-11 15:23] VITALS: BP 117/72; PULSE 82; TEMP 98.1
== END 2020-04-11 21:07 | disposition home or self-care (01) | DRG 710 ==
LOC: JER 11:34 → JERBED 17:17 → J5S 22:06 → J6S 03-23 19:50
PROVIDERS: ADMIT Internal Medicine; ATTEND Family Medicine
PROC: 0UT90ZZ Resection of Uterus, Open Approach (ICD-10-PCS; principal; 2020-03-20)
PROC: 0UT70ZZ Resection of Bilateral Fallopian Tubes, Open Approach (ICD-10-PCS; 2020-03-20)
PROC: 0UT20ZZ Resection of Bilateral Ovaries, Open Approach (ICD-10-PCS; 2020-03-20)
PROC: 0DBU0ZZ Excision of Omentum, Open Approach (ICD-10-PCS; 2020-03-20)
PROC: 0DNW0ZZ Release Peritoneum, Open Approach (ICD-10-PCS; 2020-03-20)
PROC: 0WJF0ZZ Inspection of Abdominal Wall, Open Approach (ICD-10-PCS; 2020-03-20)
PROC: 0W9J30Z Drainage of Pelvic Cavity with Drainage Device, Percutaneous Approach (ICD-10-PCS; 2020-03-29)
PROC: 2W13X6Z Compression of Abdominal Wall using Pressure Dressing (ICD-10-PCS; 2020-04-08)
DX: A41.9 Sepsis, unspecified organism (principal); D25.9 Leiomyoma of uterus, unspecified; J98.11 Atelectasis; F11.20 Opioid dependence, uncomplicated; I95.9 Hypotension, unspecified; K65.1 Peritoneal abscess; I96 Gangrene, not elsewhere classified; K66.0 Peritoneal adhesions (postprocedural) (postinfection); D72.829 Elevated white blood cell count, unspecified; R00.0 Tachycardia, unspecified; E86.9 Volume depletion, unspecified; E87.6 Hypokalemia; N73.9 Female pelvic inflammatory disease, unspecified; D64.9 Anemia, unspecified; D47.3 Essential (hemorrhagic) thrombocythemia; F17.210 Nicotine dependence, cigarettes, uncomplicated; E43 Unspecified severe protein-calorie malnutrition; R10.9 Unspecified abdominal pain; R19.00 Intra-abdominal and pelvic swelling, mass and lump, unspecified site
CPT/HCPCS: 36415; 36430; 36511; 49407; 71045-TC-FY; 71046-TC-FY; 71275-TC; 74177-TC; 80053; 80074; 80307; 81003; 82272; 82550; 82607; 82728; 83540; 83550; 83605; 83690; 83735; 84443; 84484; 85025; 85027; 85379; 85610; 85730; 86304; 86850; 86900; 86901; 86922; 87040; 87070; 87075; 87086; 87205; 87324; 87449; 88108; 88304-TC; 88307-TC; 88309-TC; 93005; 93010; 93970-TC; 94760; 99285-25; J0131; J1439; J1644; P9038; P9058; Q9967; U0003

== ENCOUNTER 2021-02-16 19:03 | Inpatient (IN) | payer OTHER ==
[2021-02-16 22:31] VITALS: BMI 24.7
[2021-02-17] MEDS ORDERED: BISMUTH SUBSALICYLATE 524 MG/30 ML PO PRN (02:09)
[2021-02-17] MEDS ORDERED: NICOTINE 10 MG CARTRIDGE (INHALER) IH PRN (02:09)
[2021-02-17] MEDS ORDERED: MAGNESIUM CITRATE 300 ML BOTTLE PO PRN (02:09)
[2021-02-17] MEDS ORDERED: MAG HYDROX/AL HYDROX/SIMETH 30 ML UNIT-DOSE CUP PO PRN (02:09)
[2021-02-17] MEDS ORDERED: MAGNESIUM HYDROX 2400MG/30ML ORAL SUSPENSION 30 ML CUP PO PRN (02:09)
[2021-02-17] MEDS ORDERED: ACETAMINOPHEN 325 MG TABLET (FP) PO PRN (02:09)
[2021-02-17] MEDS ORDERED: MENTHOL/PHENOL 1 EACH UD MM PRN (02:09)
[2021-02-17] MEDS ORDERED: methaDONE HCL 10 MG TABLET (FOR DETOX USE ONLY) PO ONE (02:09)
[2021-02-17] MEDS ORDERED: ONDANSETRON *ODT* 4 MG TABLET SL PRN (02:09)
[2021-02-17] MEDS ORDERED: methaDONE HCL 10 MG TABLET (FOR DETOX USE ONLY) ONE (02:56)
[2021-02-17] MEDS ORDERED: IBUPROFEN 400 MG TABLET (FP) PO ONE (10:47)
[2021-02-17] MEDS ORDERED: METHOCARBAMOL 500 MG TABLET ONE (10:47)
[2021-02-17] MEDS ORDERED: NICOTINE 14 MG/24 HOURS TOPICAL PATCH TD ONE (10:52)
[2021-02-17] MEDS: NICOTINE 14 MG/24 HOURS TOPICAL PATCH TD SCH (10:54)
[2021-02-17] MEDS: PRENATAL VITAMINS W/ FOLIC ACID TABLET (FP) PO SCH (10:54)
[2021-02-17] MEDS: IBUPROFEN 400 MG TABLET (FP) PO PRN ×2 (10:55→22:08)
[2021-02-17] MEDS: METHOCARBAMOL 500 MG TABLET PO PRN ×3 (10:56→22:08)
[2021-02-17 11:39] LABS: HEMATOCRIT 39.3 % (32.4-45.2); HEMOGLOBIN 13.3 GM/dL (10.7-15.3); MCH 30.6 pg (25.7-33.7); MCHC 33.8 g/dl (32.0-36.0); MEAN CELL VOLUME 90.7 fl (80-96); MEAN PLT VOLUME 8.7 fl (7.5-11.1); PLATELET COUNT 205 10^3/uL (134-434); RBC 4.34 M/mm3 (3.60-5.2); RDW 14.2 % (11.6-15.6); WHITE BLOOD COUNT 6.9 K/mm3 (4.0-10.0)
[2021-02-17 11:50] LABS: ALBUMIN 3.5 g/dl (3.4-5.0); BLOOD UREA NITROGEN 10.6 mg/dL (7-18); CALCIUM 9.3 mg/dL (8.5-10.1)
[2021-02-17 11:52] LABS: BILIRUBIN,TOTAL 0.5 mg/dL (0.2-1); TOT PROT 6.7 g/dl (6.4-8.2)
[2021-02-17 11:54] LABS: CREATININE 0.7 mg/dL (0.55-1.3)
[2021-02-17] MEDS: THIAMINE HCL 100 MG TABLET (FP) PO SCH (22:05)
[2021-02-17] MEDS: MELATONIN 5 MG TABLETS PO SCH (22:06)
[2021-02-17] MEDS: cloNIDine HCL 0.1 MG TABLET PO PRN (22:08)
[2021-02-18] MEDS: cloNIDine HCL 0.1 MG TABLET PO PRN (04:46)
[2021-02-18] MEDS: METHOCARBAMOL 500 MG TABLET PO PRN ×2 (04:46→22:16)
[2021-02-18] MEDS ORDERED: methaDONE HCL 10 MG TABLET (FOR DETOX USE ONLY) ONE (09:07)
[2021-02-18] MEDS: NICOTINE 14 MG/24 HOURS TOPICAL PATCH TD SCH (09:27)
[2021-02-18] MEDS: PRENATAL VITAMINS W/ FOLIC ACID TABLET (FP) PO SCH (09:28)
[2021-02-18] MEDS: MELATONIN 5 MG TABLETS PO SCH (22:17)
[2021-02-18] MEDS: THIAMINE HCL 100 MG TABLET (FP) PO SCH (22:17)
[2021-02-19] MEDS ORDERED: methaDONE HCL 10 MG TABLET (FOR DETOX USE ONLY) PO ONE (10:00)
[2021-02-19] MEDS: NICOTINE 14 MG/24 HOURS TOPICAL PATCH TD SCH (10:05)
[2021-02-19] MEDS: METHOCARBAMOL 500 MG TABLET PO PRN ×2 (10:06→22:21)
[2021-02-19] MEDS: PRENATAL VITAMINS W/ FOLIC ACID TABLET (FP) PO SCH (10:06)
[2021-02-19] MEDS: ACETAMINOPHEN 325 MG TABLET (FP) PO PRN (18:45)
[2021-02-19] MEDS: MELATONIN 5 MG TABLETS PO SCH (22:21)
[2021-02-19] MEDS: THIAMINE HCL 100 MG TABLET (FP) PO SCH (22:21)
[2021-02-20] MEDS: ACETAMINOPHEN 325 MG TABLET (FP) PO PRN (05:48)
[2021-02-20] MEDS ORDERED: methaDONE HCL 10 MG TABLET (FOR DETOX USE ONLY) ONE (09:14)
[2021-02-20] MEDS ORDERED: ONDANSETRON *ODT* 4 MG TABLET SL ONE (09:45)
[2021-02-20] MEDS: NICOTINE 14 MG/24 HOURS TOPICAL PATCH TD SCH (10:41)
[2021-02-20] MEDS: PRENATAL VITAMINS W/ FOLIC ACID TABLET (FP) PO SCH (10:42)
[2021-02-20] MEDS: THIAMINE HCL 100 MG TABLET (FP) PO SCH (22:22)
[2021-02-20] MEDS: MELATONIN 5 MG TABLETS PO SCH (22:22)
[2021-02-21] MEDS ORDERED: methaDONE HCL 10 MG TABLET (FOR DETOX USE ONLY) PO ONE (10:00)
[2021-02-21] MEDS: NICOTINE 14 MG/24 HOURS TOPICAL PATCH TD SCH (10:15)
[2021-02-21] MEDS: PRENATAL VITAMINS W/ FOLIC ACID TABLET (FP) PO SCH (10:15)
[2021-02-21 10:24] VITALS: BP 112/77; PULSE 69; TEMP 98.3
== END 2021-02-21 11:19 | disposition home or self-care (01) | DRG 773 ==
LOC: YASAS 19:03 → Y6N 02-17 11:34
PROVIDERS: ADMIT Allergy & Immunology; ATTEND Allergy & Immunology
PROC: HZ2ZZZZ Detoxification Services for Substance Abuse Treatment (ICD-10-PCS; principal; 2021-02-17)
DX: F11.23 Opioid dependence with withdrawal (principal); F17.210 Nicotine dependence, cigarettes, uncomplicated; D64.9 Anemia, unspecified; G47.00 Insomnia, unspecified; Z56.0 Unemployment, unspecified
CPT/HCPCS: 36415; 80053; 85027; 86780; C9803; J0735; Q0162; U0003; U0005